=== PATIENT | male | born 1930 | race Caucasian/White ===

== ENCOUNTER 2018-02-18 11:45 | Observation (INO) | payer OTHER ==
[2018-02-18 12:47] LABS: BASOPHILS # (AUTO) 0.1 10^3/uL (0.0-0.1); BASOPHILS % (AUTO) 0.5 %; EOSINOPHILS % (AUTO) 0.1 %; HGB - HEMOGLOBIN 15.3 g/dL (14.0-18.0); LYMPHOCYTES # (AUTO) 4.6 10^3/uL (1.5-3.5); LYMPHOCYTES % (AUTO) 37.1 %; MEAN CORPUSCULAR HEMOGLOBIN 30.5 pg (27.0-31.0); MEAN CORPUSCULAR HGB CONC 33.3 g/dL (32.0-36.0); MEAN CORPUSCULAR VOLUME 91.6 fL (80.0-94.0); MEAN PLATELET VOLUME 9.4 fL (7.4-11.4); MONOCYTES # (AUTO) 1.6 10^3/uL (0.0-1.0); MONOCYTES % (AUTO) 12.8 %; NEUTROPHILS # (AUTO) 6.1 10^3/uL (1.5-6.6); NEUTROPHILS % (AUTO) 49.5 %; PLT - PLATELET COUNT 154 10^3/uL (130-450); RED BLOOD COUNT 5.02 10^6/uL (4.70-6.10); WHITE BLOOD COUNT 12.4 x10^3/uL (4.8-10.8)
[2018-02-18 13:06] LABS: ALBUMIN 4.5 g/dL (3.2-5.5); ALBUMIN/GLOBULIN RATIO 1.8 (1.0-2.2); BILIRUBIN,TOTAL 1.6 mg/dL (0.2-1.0); CALCIUM 9.1 mg/dL (8.5-10.3); CREATININE 0.7 mg/dL (0.6-1.2)
[2018-02-18 13:33] LABS: DIFFERENTIAL COMMENT MANUAL=AUTO DIFF
--- NOTE | 2018-02-18 14:14 | ED Physician Documentation ---
PD HPI ABD PAIN - Stated complaint Stated Complaint: AB PX - Chief complaint Chief Complaint: Abd Pain - History obtained from History obtained from: Patient, Family - History of Present Illness Timing - onset: Last night Timing - duration: Days (1) Timing - details: Gradual onset Pain level max: 8 Pain level now: 5 Quality: Aching, Pain Location: RUQ Associated symptoms: No: Fever - Additional information Additional information: Patient is an 87-year-old gentleman who presents to the emergency department with right upper quadrant pain since last night. Had vomiting this morning. Pain is worse with sitting and worse when trying to eat. Has never had pain similar. No fevers. No diarrhea. Does have a history of CLL Review of Systems Ten Systems: 10 systems reviewed and negative Constitutional: denies: Fever, Chills Respiratory: denies: Cough GI: reports: Nausea, Vomiting. denies: Diarrhea Skin: denies: Rash Musculoskeletal: denies: Neck pain, Back pain Neurologic: denies: Headache PD PAST MEDICAL HISTORY - Past Medical History Past Medical History: Yes Cardiovascular: Murmur Respiratory: Sleep apnea Endocrine/Autoimmune: None GI: None : None HEENT: None Psych: None Musculoskeletal: None Derm: None - Past Surgical History Past Surgical History: Yes General: Colonoscopy, Other Ortho: Knee replacement - Present Medications Home Medications: Ambulatory Orders Medication Instructions Recorded Confirmed Home Medications Unobtainable 05/20/15 05/20/15 [HOME MEDICATIONS UNOBTAINABLE] - Allergies Allergies/Adverse Reactions: Allergies Allergy/AdvReac Type Severity Reaction Status Date / Time No Known Drug Allergies Allergy Verified 05/20/15 09:58 - Social History Does the pt smoke?: No Smoking Status: Never smoker Does the pt drink ETOH?: No Does the pt have substance abuse?: No - Immunizations Immunizations are current?: Yes PD ED PE NORMAL - Vitals Vital signs reviewed: Yes - General General: Alert and oriented X 3, No acute distress - HEENT HEENT: Moist mucous membranes - Neck Neck: Supple, no meningeal sign - Cardiac Cardiac: RRR - Respiratory Respiratory: No respiratory distress, Clear bilaterally - Abdomen Abdomen: Other (Tender palpation right upper quadrant. Positive Danielle sign. Otherwise normal abdominal exam) - Back Back: No spinal TTP - Derm Derm: Warm and dry - Extremities Extremities: No edema - Neuro Neuro: Alert and oriented X 3 Results - Vitals Vitals: Vital Signs - 24 hr 08/21/18 08/21/18 08/21/18 12:01 14:00 16:00 Temperature 36.7 C Heart Rate 65 66 68 Heart Rate [ Brachial] Respiratory 18 18 18 Rate Blood Pressure 169/66 H 161/67 H 155/68 H Blood Pressure [Left Brachial artery] O2 Saturation 96 98 96 02/18/18 02/18/18 02/18/18 18:00 21:35 21:40 Temperature 36.5 C Heart Rate 66 Heart Rate [ Brachial] Respiratory 18 16 15 Rate Blood Pressure 156/66 H 163/54 H 163/61 H Blood Pressure [Left Brachial artery] O2 Saturation 98 100 97 02/18/18 02/18/18 02/18/18 21:45 21:50 21:55 Temperature 36.3 C L 36.6 C Heart Rate Heart Rate [ Brachial] Respiratory 15 18 21 Rate Blood Pressure 158/56 H 142/45 H 162/58 H Blood Pressure [Left Brachial artery] O2 Saturation 99 99 97 02/18/18 02/18/18 02/18/18 22:00 22:05 22:26 Temperature 36.3 C L 36.4 C L 37 C Heart Rate Heart Rate [ 61 Brachial] Respiratory 20 15 16 Rate Blood Pressure 149/58 H 149/58 H Blood Pressure 145/57 H [Left Brachial artery] O2 Saturation 97 97 94 02/18/18 23:00 Temperature 36.6 C Heart Rate Heart Rate [ 59 L Brachial] Respiratory 16 Rate Blood Pressure Blood Pressure 142/53 H [Left Brachial artery] O2 Saturation 95 Oxygen O2 Source Room air - Labs Labs: Laboratory Tests 02/18/18 02/18/18 02/18/18 12:40 12:40 12:40 WBC 12.4 H RBC 5.02 Hgb 15.3 Hct 46.0 MCV 91.6 MCH 30.5 MCHC 33.3 RDW 14.0 Plt Count 154 MPV 9.4 Neut # (Auto) 6.1 Lymph # (Auto) 4.6 H Ellis # (Auto) 1.6 H Eos # (Auto) 0.0 Baso # (Auto) 0.1 Absolute Nucleated RBC 0.00 Band Neuts % (Manual) Not Reportable Abnorm Lymph % (Manual) Not Reportable Nucleated RBC % 0.0 Neutrophils # (Manual) Not Reportable Lymphocytes # (Manual) Not Reportable Monocytes # (Manual) Not Reportable Eosinophils # (Manual) Not Reportable Basophils # (Manual) Not Reportable Differential Comment MANUAL=AUTO DIFF WBC Morphology 2+ REACTIVE LYMPHS Sodium 141 Potassium 4.7 Chloride 102 Carbon Dioxide 30 Anion Gap 9.0 BUN 9 Creatinine 0.7 Estimated GFR (MDRD) 107 Glucose 116 H POC Whole Bld Glucose Calcium 9.1 Total Bilirubin 1.6 H AST 30 ALT 21 Alkaline Phosphatase 67 Troponin I < 0.04 Total Protein 7.0 Albumin 4.5 Globulin 2.5 Albumin/Globulin Ratio 1.8 Lipase 24 Urine Color Urine Clarity Urine pH Ur Specific [place] Urine Protein Urine Glucose (UA) Urine Ketones Urine Occult Blood Urine Nitrite Urine Bilirubin Urine Urobilinogen Ur Leukocyte Esterase Urine RBC Urine WBC Ur Squamous Epith Cells Amorphous Sediment Urine Bacteria Ur Microscopic Review Urine Culture Comments 02/18/18 02/18/18 14:35 23:09 WBC RBC Hgb Hct MCV MCH MCHC RDW Plt Count MPV Neut # (Auto) Lymph # (Auto) Ellis # (Auto) Eos # (Auto) Baso # (Auto) Absolute Nucleated RBC Band Neuts % (Manual) Abnorm Lymph % (Manual) Nucleated RBC % Neutrophils # (Manual) Lymphocytes # (Manual) Monocytes # (Manual) Eosinophils # (Manual) Basophils # (Manual) Differential Comment WBC Morphology Sodium Potassium Chloride Carbon Dioxide Anion Gap BUN Creatinine Estimated GFR (MDRD) Glucose POC Whole Bld Glucose 228 H Calcium Total Bilirubin AST ALT Alkaline Phosphatase Troponin I Total Protein Albumin Globulin Albumin/Globulin Ratio Lipase Urine Color YELLOW Urine Clarity CLEAR Urine pH 7.5 Ur Specific [place] 1.015 Urine Protein NEGATIVE Urine Glucose (UA) NEGATIVE Urine Ketones NEGATIVE Urine Occult Blood SMALL H Urine Nitrite NEGATIVE Urine Bilirubin NEGATIVE Urine Urobilinogen 0.2 (NORMAL) Ur Leukocyte Esterase NEGATIVE Urine RBC 11-25 H Urine WBC 4-5 Ur Squamous Epith Cells RARE Squamous Amorphous Sediment Few Urine Bacteria None Seen Ur Microscopic Review INDICATED Urine Culture Comments NOT INDICATED - Rads (name of study) RUQ US Radiology: Prelim report reviewed, EMP read contemporaneously, See rad report ( Gallbladder wall thickening with mild adjacent inflammatory change is most in keeping with acute cholecystitis as demonstrated on ultrasound. Diverticulosis. Moderately enlarged prostate gland. ) CT abd/pelvis Radiology: Prelim report reviewed, EMP read contemporaneously, See rad report ( Cholelithiasis with cholecystitis. 2 hyperechoic foci right lobe of the liver, possible hemangiomas. Suggest follow-up by abdomen CT with hemangioma protocol on a routine outpatient basis. ) PD MEDICAL DECISION MAKING - ED course Complexity details: reviewed results, re-evaluated patient, considered differential, d/w patient, d/w family, d/w [facility] consultant ED course: Patient is an 87-year-old gentleman with acute cholecystitis. Given Zosyn. A CT was undertaken as there was a question of a potential renal mass on ultrasound. Discussed the case with Dr. Nazario, general surgery who came and evaluated the patient. He will take him to the operating room. This document was made in part using voice recognition software. While efforts are made to proofread this document, sound alike and grammatical errors may occur. - Sepsis Event Vital Signs: Vital Signs - 24 hr 02/18/18 02/18/18 02/18/18 12:01 14:00 16:00 Temperature 36.7 C Heart Rate 65 66 68 Heart Rate [ Brachial] Respiratory 18 18 18 Rate Blood Pressure 169/66 H 161/67 H 155/68 H Blood Pressure [Left Brachial artery] O2 Saturation 96 98 96 02/18/18 02/18/18 02/18/18 18:00 21:35 21:40 Temperature 36.5 C Heart Rate 66 Heart Rate [ Brachial] Respiratory 18 16 15 Rate Blood Pressure 156/66 H 163/54 H 163/61 H Blood Pressure [Left Brachial artery] O2 Saturation 98 100 97 02/18/18 02/18/18 02/18/18 21:45 21:50 21:55 Temperature 36.3 C L 36.6 C Heart Rate Heart Rate [ Brachial] Respiratory 15 18 21 Rate Blood Pressure 158/56 H 142/45 H 162/58 H Blood Pressure [Left Brachial artery] O2 Saturation 99 99 97 02/18/18 02/18/18 02/18/18 22:00 22:05 22:26 Temperature 36.3 C L 36.4 C L 37 C Heart Rate Heart Rate [ 61 Brachial] Respiratory 20 15 16 Rate Blood Pressure 149/58 H 149/58 H Blood Pressure 145/57 H [Left Brachial artery] O2 Saturation 97 97 94 02/18/18 23:00 Temperature 36.6 C Heart Rate Heart Rate [ 59 L Brachial] Respiratory 16 Rate Blood Pressure Blood Pressure 142/53 H [Left Brachial artery] O2 Saturation 95 Oxygen O2 Source Room air Departure - Departure Disposition: ED Transfer to [facility] Clinical Impression: Acute cholecystitis Condition: Stable Discharge Date/Time: 02/18/18 19:20
[2018-02-18 14:53] LABS: BILIRUBIN,URINE NEGATIVE (NEGATIVE); GLUCOSE, URINE (UA) NEGATIVE (NEGATIVE); KETONES,URINE (UA) NEGATIVE (NEGATIVE); LEUKOCYTE ESTERASE, URINE NEGATIVE (NEGATIVE); NITRITE,URINE NEGATIVE (NEGATIVE); OCCULT BLOOD,URINE SMALL (NEGATIVE); PH,URINE 7.5 PH (5.0-7.5); PROTEIN,URINE NEGATIVE (NEGATIVE); UROBILINOGEN,URINE 0.2 (NORMAL) E.U./dL (NORMAL)
[2018-02-18 14:56] LABS: CLARITY,URINE CLEAR (CLEAR)
[2018-02-18 15:02] LABS: AMORPHOUS SEDIMENT,UR Few /LPF; SQUAMOUS EPITHELIAL CELL,UR RARE Squamous (<= Few)
[2018-02-18 15:14] LABS: BACTERIA,URINE None Seen /HPF (None Seen)
[2018-02-18] MEDS ORDERED: IOPAMIDOL-300 100 ML VIAL ONE (16:37)
--- NOTE | 2018-02-18 16:44 | Ultrasound Report ---
Procedure Date: 02/18/2018 Accession Number: [id number] / [id number] Procedure: US - Abdomen Limited CPT Code: FULL RESULT: EXAM: ABDOMEN ULTRASOUND LIMITED, RUQ EXAM DATE: 02/18/2018 04:15 PM. CLINICAL HISTORY: RUQ abd pain. COMPARISON: None. TECHNIQUE: Real-time scanning was performed with static images obtained. FINDINGS: Liver: Mildly increased in size and normal in echotexture. 18.6 cm. 2 right lobe echogenic avascular areas measuring 1.5 x 1.4 x 1.3 and 0.9 x 0.7 x 0.6 cm. Main portal vein flow: Hepatopetal. Gallbladder: Cholelithiasis. Gallbladder sludge. Edematous gallbladder wall with wall thickness 4.5 mm. Biliary System: CBD measures 5.4 mm. No intrahepatic or extrahepatic ductal dilatation. Right kidney: 12 cm. No obstruction. Mildly lobulated contour Free fluid: Trace adjacent to the gallbladder. IMPRESSION: 1. Cholelithiasis with cholecystitis. 2. 2 hyperechoic foci right lobe of the liver, possible hemangiomas. Suggest follow-up by abdomen CT with hemangioma protocol on a routine outpatient basis. RADIA
[2018-02-18] MEDS ORDERED: PIPERACILLIN/TAZOBACTAM 3.375 GM in SODIUM CHLORIDE 0.9% MINIBAG 100 ML IV STA (17:05)
[2018-02-18] MEDS ORDERED: IOPAMIDOL-300 100 ML VIAL IVP ONE (17:26)
--- NOTE | 2018-02-18 17:45 | CT Report ---
Procedure Date: 02/18/2018 Accession Number: [id number] / [id number] Procedure: CT - Abdomen/Pelvis W/ CPT Code: FULL RESULT: EXAM: CT ABDOMEN AND PELVIS EXAM DATE: 02/18/2018 05:24 PM. CLINICAL HISTORY: Abd pain, RUQ, possible renal mass on US. COMPARISONS: Same day ultrasound. TECHNIQUE: Routine helical CT imaging was performed through the abdomen and pelvis. IV contrast: 100 ML ISOVUE 300. Enteric contrast: No. Reconstructions: Coronal and sagittal. In accordance with CT protocol optimization, one or more of the following dose reduction techniques were utilized for this exam: automated exposure control, adjustment of mA and/or KV based on patient size, or use of iterative reconstructive technique. FINDINGS: Lung Bases: Unremarkable. Liver: A vague enhancing focus in the right lobe measuring approximately 9 mm may correlate with the echogenic lesion seen on ultrasound (image 25 series 3). Gallbladder/Bile Ducts: There is gallbladder wall thickening with mild adjacent inflammatory change. There may be tiny layering stones. Gallbladder is mildly distended. No bile duct dilation. Spleen: Normal. Pancreas: Mildly atrophic. Adrenal Glands: Normal. Kidneys: No hydronephrosis. No right renal mass. Inferior pole left renal cyst. Probable renal vascular calcifications rather than nonobstructing stones. Peritoneal Cavity/Bowel: Small hiatal hernia. No bowel obstruction. 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 The appendix is normal. Pelvic Organs: Moderately enlarged prostate gland. Urinary bladder is unremarkable. Vasculature: Moderate to severe atherosclerosis. No aneurysm. Bones: Mild lumbar scoliosis. Moderate to marked disk degeneration. Other: None. IMPRESSION: 1. Gallbladder wall thickening with mild adjacent inflammatory change is most in keeping with acute cholecystitis as demonstrated on ultrasound. 2. Diverticulosis. 3. Moderately enlarged prostate gland. RADIA
--- NOTE | 2018-02-18 18:36 | ANESTHESIA ---
Pre-Anesthesia VS, & Labs - Diagnosis acute cholecystitis - Procedure Laparoscopic Cholecystectomy Vital Signs: Temp Pulse Resp BP Pulse Ox 36.7 C 68 18 155/68 H 96 02/18/18 12:01 02/18/18 16:00 02/18/18 16:00 02/18/18 16:00 02/18/18 16:00 Height 5 ft 10 in Weight (kg) 88.904 kg Body Mass Index 28.1 - NPO >8 hours - Lab Results Fish Bones: 02/18/18 12:40 02/18/18 12:40 Home Medications and Allergies Home Medications: Ambulatory Orders Medication Instructions Recorded Confirmed Home Medications Unobtainable 05/20/15 05/20/15 [HOME MEDICATIONS UNOBTAINABLE] Allergies/Adverse Reactions: Allergies Allergy/AdvReac Type Severity Reaction Status Date / Time No Known Drug Allergies Allergy Verified 05/20/15 09:58 Anes History & Medical History - Anesthetic History Anesthesia Complications: reports: No previous complications - Medical History Cardiovascular: reports: Murmur Pulmonary: reports: Sleep apnea, CPAP use Gastrointestinal: reports: None Urinary: reports: None Musculoskeletal: reports: None Endocrine/Autoimmune: reports: None Blood Disorders: reports: Anemia Skin: reports: None Smoking Status: Former smoker - Surgical History General: Colonoscopy, Other Orthopedic: Knee replacement Results - EKG Results EKG Comparison: Reviewed EKG Exam General: Alert Dental: Dentures full Upper, Partials Lower Mouth Openin Fingerbreadth Neck Mobility: Reduced Mallampati classification: II Thyromental Distance: greater than 6 cm Respiratory: Lungs clear Cardiovascular: Regular rate, Normal S1, Normal S2 Mental/Cognitive Status: Alert/Oriented X3 Plan Anesthesia Type: General Consent for Procedure(s) Verified and Reviewed: Yes Code Status: Attempt Resuscitation ASA classification: 2-Mild systemic disease Is this case an emergency?: Yes
[2018-02-18] MEDS ORDERED: BUPIVACAINE 0.5% PF 30 ML VIAL ONE (18:48)
--- NOTE | 2018-02-18 19:20 | CONSULTATION NOTE ---
Referring Provider Name of Referring Provider:: Dr. Wilfredo Orellana Consult Date: 02/18/18 Chief Complaint - Chief Complaint Chief Complaint: RUQ pain History of Present Illness - Admitted From Admitted From:: [facility] ED - History Obtained From Records Reviewed: Yes History obtained from: Patient and chart Exam Limitations: None - History of Present Illness HPI Comment/Other: I am calling consultation by Dr. Wilfredo Isaac to evaluate this very pleasant 87-year-old gentleman for diagnosis and treatment of acute cholecystitis. Please note that the patient was evaluated in room 7 at [facility]'s emergency department. Please also note that he was evaluated in the presence of his son and I believe [id number]. The patient has a less than 24-hour history of right upper quadrant pain that either happened just before or just after eating some pizza. He has not had this pain previously. The pain was described as very sharp and penetrating through to his back. It was accompanied by nausea and some vomiting. When the pain did not resolve he presented to the emergency department. He denies hematemesis, melena, hematochezia, or unexplained weight loss. History - Past Medical History Cardiovascular: reports: Murmur Respiratory: reports: Sleep apnea, CPAP use Endocrine/Autoimmune: reports: None GI: reports: None : reports: None HEENT: reports: None Psych: reports: None Musculoskeletal: reports: None Derm: reports: None MRSA Hx?: No - Past Surgical History General: reports: Colonoscopy, Other Ortho: reports: Knee replacement Meds/Allgy - Home Medications Home Medications: Ambulatory Orders Medication Instructions Recorded Confirmed Home Medications Unobtainable 05/20/15 05/20/15 [HOME MEDICATIONS UNOBTAINABLE] - Allergies Allergies/Adverse Reactions: Allergies Allergy/AdvReac Type Severity Reaction Status Date / Time No Known Drug Allergies Allergy Verified 05/20/15 09:58 Review of Systems - Constitutional Constitutional: denies: Fatigue - Eyes Eyes: denies: Pain - Ears, Nose & Throat Ears, Nose & Throat: denies: Ear pain - Cardiovascular Cariovascular: reports: Palpitations (Occasionally.), Other (Patient known to have a systolic ejection murmur.) - Respiratory Respiratory: reports: Snoring, Apnea (Sleep.). denies: Cough, Sputum production , Wheezing - Gastrointestinal Gastrointestinal: reports: Abdominal pain, Nausea, Vomiting. denies: Rectal bleeding, Black stools, Bloody stools, Chris blood emesis - Genitourinary Genitourinary: denies: Dysuria - Neurological Neurological: denies: General weakness, Focal weakness - Psychiatric Psychiatric: denies: Depression, Anxiety, Suicidal Exam - Vital Signs Reviewed Vital Signs: Yes Vital Signs: Vital Signs x48h Temp Pulse Resp BP Pulse Ox 02/18/18 18:00 66 18 156/66 H 98 18 16:00 68 18 155/68 H 96 02/18/18 14:00 66 18 161/67 H 98 02/18/18 12:01 36.7 C 65 18 169/66 H 96 - Physical Exam General Appearance: positive: No acute distress Eyes Bilateral: positive: No lid inflammation, Conjunctivae nml, No scleral icterus ENT: positive: Dry mucous membranes Neck: positive: Trachea midline Respiratory: positive: Chest non-tender, No respiratory distress, Breath sounds nml Cardiovascular: positive: Regular rate & rhythm, Systolic murmur Abdomen: positive: Nml bowel sounds, Tenderness (In the right upper quadrant.), Other (Obese.) Skin: positive: Color nml Neurologic/Psychiatric: positive: Oriented x3 Conclusion/Plan - Diagnosis Diagnosis: Acute cholecystitis. - Plan Plan: Laparoscopic cholecystectomy, possible open cholecystectomy, possible intraoperative cholangiogram, possible common bile duct exploration. The indications, procedure, alternatives including no surgery, possible risks including infection (deep or superficial), bleeding requiring transfusion (with all of its risks), common bile duct injury and were fully explained to the patient and all questions answered. I андрей pictures to help describe what the gallbladder is and how it works. I also explained the pathophysiology. I explained that following the surgery I did not want him lifting anything over 15 pounds for 6 weeks to allow for optimal healing and to decrease the likelihood that a hernia would occur. All questions were fully answered. Verbal and written consent was obtained. The patient, in preparation for surgery will be nothing by mouth, receive a soap and water shower, and receive 2 g of Ancef with induction. I asked him to contact me with any surgical questions and his concerns and he stated that he would. I asked him to let me know if there is any way we can make his say at [facility] more comfortable and he stated that he would let me know. 45 minutes of [id number] time spent with the patient, over 80% in discussion, coordination of his care, and completion of the requisite paperwork Yonny disclaimer: This document was created in part using voice recognition technology. Because of the inherent limitations of the system ([employer] user manual states that the licensee understands that speech recognition is a statistical process and that recognition errors are inherent in the process), occasional same sounding word substitutions and grammatical errors do occur and persist despite proofreading. Please read this document for context. - Lab Results Lab results reviewed: Yes Fish Bones: 02/18/18 12:40 02/18/18 12:40 - Diagnostic Imaging Results Diagnostic Imaging Results: positive: Final report reviewed (The ultrasound done today indicates cholelithiasis with cholecystitis. Additionally 2 hyperechoic foci in the right lobe of liver I read as possible hemangiomas and suggested follow-up of abdominal CT with hemangioma protocol and routine outpatient basis. The abdominal pelvic CT that was ordered shows a vague enhancing focus in the right lobe measuring approximately 9 mm which may correlate with the echogenic lesion seen on ultrasound image 25 series 3. Additionally there is gallbladder wall thickening with mild adjacent inflammatory changes. The gallbladder is mildly distended. There is no bile duct dilatation. There may be tiny layering stones. Additional findings include diverticulosis and a mildly enlarged prostate gland. Other findings include a duodenal diverticulum and a hiatal hernia.)
[2018-02-18] MEDS ORDERED: LACTATED RINGERS 1,000 ML IV ONE ×2 (20:03→20:56)
[2018-02-18] MEDS ORDERED: BUPIVACAINE 0.5% PF 30 ML VIAL SUBQ ONE (20:58)
[2018-02-18] MEDS ORDERED: MIDAZOLAM 2 MG/2 ML VIAL IVP ONE (21:00)
[2018-02-18] MEDS ORDERED: ONDANSETRON 4 MG/2 ML VIAL IVP ONE (21:00)
[2018-02-18] MEDS ORDERED: fentaNYL 100 MCG/2 ML VIAL IVP ONE (21:00)
[2018-02-18] MEDS ORDERED: PROPOFOL 200 MG/20 ML VIAL IVP ONE (21:00)
[2018-02-18] MEDS ORDERED: ROCURONIUM 50 MG/5 ML VIAL IVP ONE (21:00)
[2018-02-18] MEDS ORDERED: LIDOCAINE-MPF 2% 5 ML VIAL IM ONE (21:00)
[2018-02-18] MEDS ORDERED: ACETAMINOPHEN 1,000 MG/100 ML 100 ML IV ONE (21:00)
--- NOTE | 2018-02-18 21:50 | OPERATIVE REPORT ---
Operative Report - General Procedure Date: 02/18/18 Planned Procedure: Laparoscopic cholecystectomy Pre-Op Diagnosis: Acute cholecystitis Procedure Performed: Laparoscopic cholecystectomy and umbilical herniorrhaphy Post Op Diagnosis: Acute cholecystitis and umbilical hernia - Procedure Note Primary Surgeon: Mp Nazario MD Anesthesia Provider: Destini Mullins CRNA Anesthesia Technique: General ET tube, Local (30 mL of half percent Marcaine) IV Fluids (mL): 1,000 Estimated Blood Loss (mL): 75 Complications: None. - Other Other Information/Narrative: OPERATIVE DESCRIPTION/REPORT: After verbal and written informed consent was obtained detailing the risks of infection, bleeding with all of its risks including transfusion, common bile duct injury, and the patient was brought to the operative suite and placed in the supine position on the operating room table. Monitoring devices were applied along with TEDs and pneumatic compressive stockings. Care was taken to avoid pressure points. Prophylactic antibiotics were given. An adequate level of general endotracheal anesthesia was established by Destini Mullins CRNA. The abdomen was then prepped with ChloraPrep and draped in a sterile fashion. A "time in" then confirmed that the patient was identified with 3 identifiers (name, date and medical record number), the history and physical was in the chart, the signed consent confirming the procedure was in the chart, the patient was in the correct position, the aforementioned prophylactic measures were in place or given, we had the correct personnel and equipment to complete the procedure and that anesthesia, surgery and nursing were given an opportunity to express any concerns. The initial incision was at the umbilicus and dissection to the umbilical hernia completed using blunt dissection. The hernia sac was excised using Bovie electrocautery thus gaining entry into the abdomen without incident. In this location, a 12 mm blunt tipped, balloon tipped port was placed and the balloon was inflated to keep the port in position. The abdominal cavity was insufflated with carbon dioxide to steady-state pressure of 15 mmHg. Three additional 5 mm ports were placed in standard location for laparoscopic cholecystectomy (subxiphoid and 2 right subcostal) under direct vision of the 30 degree laparoscope and without incident. The patient was then placed in reverse Trendelenburg position and was rotated slightly to their left. The gallbladder was tense and distended and could not be grasped. Additionally there were many adhesions to the gallbladder including the duodenum. The adhesions were meticulously taken down using a combination of laparoscopic scissors as well as Bovie electrocautery. Once I was able to visualize the gallbladder well a needle was inserted into the gallbladder and light brown colored clear bile was removed. A total of 60 cc was removed. Once this was done the very thick-walled gallbladder could be grasped with Prestige graspers. Additional adhesions had to be taken down by blunt and sharp dissection along with electrocautery. Eventually, we identified the infundibulum, and this was then grasped and retracted inferior and laterally. Dissection was then begun in the angle of Calot. The cystic duct and (slightly medially and posteriorly) cystic artery were clearly identified. The critical view was obtained. Photographs were taken. Two clips proximally and one clip distally were used to control both the cystic duct and cystic artery. The clips were carefully placed to avoid occluding the juncture with the common bile duct. Both the cystic duct and then the cystic artery were then transected with laparoscopic andrey. The gallbladder was then removed from its fossa in a retrograde fashion using electrocautery. This was complicated by the massive amount of inflammation. Parts the gallbladder was densely adherent to the liver bed and at other parts it would simply peel off. We were able to remove the gallbladder in its entirety. Unfortunately, there was some bleeding from the gallbladder bed and control this I packed it with a Ray-Caleb. 5 minutes were allowed to elapse for hemostasis to occur. While I was waiting for hemostasis to occur at the gallbladder bed the patient was rotated flat and the right upper quadrant was copiously irrigated using warm sterile saline. A total of 4 L of saline was used. Additionally, I injected the port sites at the peritoneal , fascial, and skin levels under direct vision with 0.5% Marcaine. With the 30 degree 5 mm scope in the subxiphoid position, the gallbladder and the Ray- Caleb was placed in an EndoCatch bag to be extracted through the 12 mm port site. I irrigated the right upper quadrant with a liter of warm sterile saline, and the area was aspirated dry. I inspected the gallbladder fossa and clot had formed and there was no bleeding or bile leak. Clips on the cystic duct and cystic artery appeared to be secure. I briefly visually explored the abdomen. There was no other evidence of overt pathology. All ports and the EndoCatch containing the gallbladder and Ray-Caleb were removed. Following gallbladder removal, the remaining carbon dioxide was expelled from the abdomen. The fascial defect at the umbilicus was closed using a 0 Vicryl suture in a [id number] fashion. 2 sutures were required to close the fascia. In this manner the umbilical hernia was repaired. The fascia at the umbilicus as well as the skin was then injected with the remaining 0.5% Marcaine. The skin incisions were approximated with a running or interrupted subcuticular 4-0 Monocryl. At this point a time out was performed that confirmed that all the counts were correct, the procedure that was performed, the blood loss, the IV fluids administered, and the patients condition. Having tolerated the procedure well, the patient was subsequently extubated and taken to recovery room in good and stable condition. [employer] disclaimer: This document was created in part using voice recognition technology. Because of the inherent limitations of the system ([employer]'s [employer] Dictate user manual states that the licensee understands that speech recognition is a statistical process and that recognition errors are inherent in the process), occasional same sounding word substitutions and grammatical errors do occur and persist despite proofreading. Please read this document for context.
[2018-02-18] MEDS ORDERED: HYDROmorphone 0.5 MG/0.5 ML SYRINGE IVP PRN (23:52)
[2018-02-18] MEDS ORDERED: ONDANSETRON 4 MG/2 ML VIAL IVP PRN (23:52)
[2018-02-18] MEDS ORDERED: INSULIN REGULAR HUMAN 100 UNIT/1 ML 10 ML MDV IV PRN (23:54)
[2018-02-19] MEDS ORDERED: LACTATED RINGERS 1,000 ML IV SCH ×2 (01:00→18:00)
[2018-02-19] MEDS ORDERED: oxyCOD/ACETAMIN 5 MG/325 MG TABLET PO ONE ×2 (01:34→05:32)
[2018-02-19] MEDS: oxyCOD/ACETAMIN 5 MG/325 MG TABLET PO PRN ×2 (01:40→05:39)
[2018-02-19 02:51] LABS: HB2 TOTAL 13.8 g/dL; HEMOGLOBIN A1C 0.55 g/dL; HEMOGLOBIN A1C % 5.8 % (4.6-6.2)
--- NOTE | 2018-02-19 06:24 | CONSULTATION NOTE ---
DATE OF SURGERY: 02/18/2018 DATE OF SERVICE: 02/18/2018 Physician: Santa Christensen MD REFERRING PHYSICIAN: Mp Nazario MD, General Surgery. REASON FOR CONSULTATION: Management of diabetic patient in the postoperative setting. HISTORY OF PRESENT ILLNESS: Patient is a kaylynn, 87-year-old, white male who has had type 2 diabetes mellitus for about 15 years. He is on oral medications and denies any complications of neuropathy, retinopathy, or nephropathy. He presented to our hospital with right upper quadrant pain starting on February 17. Overnight, it progressed to nausea and vomiting with right upper quadrant pain. In our emergency room, he was identified as having acute cholecystitis. This was on the evening of February 18. He was taken to the operating room by Dr. Mp Nazario. There have been no perioperative complications and he is now in the postoperative setting. We are being asked to manage his glucose. [employer] website reviewed as well as [facility] to obtain his previous history. The patient states that his sugars are usually well controlled. He is followed by Oncology at [facility] and unfortunately there is no A1c with that record. I do have an A1c of 6.3% in [facility], but that is from May 2015. Patient is unable to tell me what his sugars are. He says that he does not check them on a regular basis. He says that his sugars have been well controlled. In the immediate postoperative setting a random glucose is 228. Before going to the OR, he was 116. PAST MEDICAL HISTORY 1. 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 His last LDH was 807 on followup December 2017. He has been on Imbruvica since October 2016. 2. Iron deficiency anemia from #3. Initially, he presented as severe anemia in 2014 to our hospital. Because of his autoimmune hemolytic anemia and transfusion reaction risk, he was transferred to [facility] for further evaluation of the iron deficiency anemia, but also because he had 2% blast. 3. Erosive gastritis. Because his iron deficiency anemia continued even after transfusion and treatment of CLL, he underwent an EGD and colonoscopy in October 2015. He was found to have erosive gastritis, and treated with proton pump inhibitors and H2 blockers. He was H pylori negative. Followup EGD in March 2016 showed resolution of the erosive gastritis. The patient still lists aspirin on his daily medication list and is unaware that he should most likely stop all nonsteroidals with his history of his erosive gastritis. 4. Type 2 diabetes mellitus as above. 5. Hypertension. 6. Gastroesophageal reflux disease. 7. Osteoarthritis with bilateral total knee replacements. 8. Obstructive sleep apnea, on CPAP. 9. History of skin cancer on his jaw line. 10. Tonsillectomy as a child. 11. Nerve transplant or transposition surgery, left arm. 12. History of chronic pulmonary nodule. 13. Hemorrhoidectomy in 2015. 14. Psoriasis. ALLERGIES: NO KNOWN DRUG ALLERGIES. MEDICATIONS Medications have not been verified. They are reviewed in his oncology progress notes with Dr. Calixto Dash at [facility] from 12/03/2017. That list has: 1. Ferrous sulfate 325 mg p.o. b.i.d. 2. Omeprazole 20 mg p.o. b.i.d. 3. Simvastatin 80 mg p.o. at Bedtime. 4. Imbruvica 420 mg p.o. daily. 5. Aspirin 81 mg p.o. daily. 6. Calcium carbonate with vitamin D two tablets daily. 7. Vitamin D 1000 units daily. 8. Docusate sodium 250 mg daily. 9. Fosinopril 20 mg daily. 10. Metformin 1000 mg p.o. daily. SOCIAL HISTORY: He was born in [place] and spent most of his life there. After fci, moved to [place]. He served in the [employer] for 10 years. 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 to his first until she of ruptured aneurysm complications in 2016. He smoked cigarettes for 50 years in the past. 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 FAMILY HISTORY: Mom at 89 of unknown causes and attributed to old age, same with his dad who in his 80s. Six siblings are all , but he denies any history of cancer, heart attack, stroke in them. His 4 children are healthy. REVIEW OF SYSTEMS Not able to be completely obtained in his postop sedated state. CONSTITUTIONAL: This patient is sedated in the postoperative setting. While he is alert and cooperative, he is quite euphoric. ENT: He denies any problems with vision, headaches. PULMONARY: Denies coughing, wheezing, chest congestion. CARDIAC: Denies chest pain, palpitations, shortness of breath. However, he is always tired. He has been tired ever since he has had his CLL. GASTROINTESTINAL: With chronic constipation and hemorrhoids, but the hemorrhoids were treated. GENITOURINARY: Urgency occasionally. Decreased stream usually. JOINTS: Stiff all over, but not new and he says "I'm old, what do you expect." SKIN: No new lesions. CENTRAL NERVOUS SYSTEM AND PSYCHIATRIC: Unable to be verified, he's under the effects of anesthesia and pain meds. PHYSICAL EXAMINATION VITAL SIGNS: On examination, temperature is 36.3, pulse is 58, blood pressure 130/51, respirations 18, 92% on room air. NECK: Supple. LUNGS: Clear. HEART: He has a regular rate and rhythm without murmurs, rubs or gallops. ABDOMEN: With 1 bowel sound heard. Laparoscopic incision sites that are tender. EXTREMITIES: Without clubbing, cyanosis or edema. NEUROLOGIC: He is euphoric. No focal deficits. LABORATORY DATA: CMP shows a random glucose of 116 with a glucose after surgery of 228. Bilirubin is 1.6, AST 30, ALT 21. Troponin less than 0.04. CBC shows him to have a white cell count of 58,700, hemoglobin of 6, hematocrit 21.6, platelets 128. ASSESSMENT/PLAN 1. Type 2 diabetes mellitus, controlled, without complications, not on long- term use of insulin. Patient is on a low-carbohydrate diet per General Surgery. As such, patient will be placed on moderate sliding scale subcutaneous insulin coverage. At this time, he cannot be resumed on his metformin. He has received dye with his CT in the ER. Metformin needs to be held for the next 72 hours with a creatinine check before he can resume that. Check A1c in a.m. 2. 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 In reviewing the records from [facility] and [facility], the patient is at risk for transfusion reaction. As such, his hemoglobin has been watched and carefully monitored, but not necessarily transfused. In a normal patient, he would be receiving at least 1-2 units to bring him above 7 or 8. In this patient, unless he is symptomatic with hypotension and tachycardia, we will not transfuse. 3. Hypertension, controlled. When able to take medications in the morning, will resume usual medications. 4. Acute cholecystitis. POD#0. s/p lap norah. General Surgery will continue to write orders with regards to diet, pain medication and antibiotics. 5. Obstructive sleep apnea. Orders have already been written that he may use his own CPAP. 6. FULL CODE status. 7. Deep venous thrombosis prophylaxis will be ANTOINETTE talbot. TD: 02/19/2018 00:26 RENETTA
[2018-02-19] MEDS ORDERED: oxyCODONE 5 MG TABLET PO PRN (07:08)
[2018-02-19] MEDS: INSULIN ASPART 300 UNIT/3 ML PEN SUBQ SCH ×4 (07:57→21:10)
[2018-02-19 10:30] LABS: HGB - HEMOGLOBIN 13.6 g/dL (14.0-18.0); MEAN CORPUSCULAR VOLUME 91.3 fL (80.0-94.0); MEAN PLATELET VOLUME 8.9 fL (7.4-11.4); RED BLOOD COUNT 4.38 10^6/uL (4.70-6.10); RED CELL DISTRIBUTION WIDTH 13.7 % (12.0-15.0); WHITE BLOOD COUNT 9.3 x10^3/uL (4.8-10.8)
[2018-02-19 10:44] LABS: ALBUMIN 3.7 g/dL (3.2-5.5); ALBUMIN/GLOBULIN RATIO 1.6 (1.0-2.2); BILIRUBIN,TOTAL 2.2 mg/dL (0.2-1.0); CALCIUM 8.3 mg/dL (8.5-10.3); CREATININE 0.8 mg/dL (0.6-1.2)
[2018-02-19] MEDS ORDERED: CALCIUM CARBONATE CHEW 500 MG TABLET PO PRN (11:21)
[2018-02-19] MEDS: FAMOTIDINE 20 MG TABLET PO SCH ×2 (11:49→19:55)
--- NOTE | 2018-02-19 16:36 | Discharge Plan ---
Discharge Plan Disposition: Home, Self Care Condition: Poor Prescriptions: Blood-Glucose Meter [Glucometer] 1 each MC TID #1 each Docusate Sodium 100 mg PO BID PRN #10 capsule PRN Reason: Constipation Insulin Aspart [Novolog Flexpen] 0 unit SUBQ ACHS #5 each Lancets/Blood Glucose Strips [Fora [id number] Strp-Lnct] 1 each MC TID #15 combo..pkg oxyCODONE [Roxicodone] 5 mg PO Q4H PRN #30 tablet PRN Reason: Pain Pen Needle, Diabetic [Pen [place]] 1 each MC TID #15 dis.needle Diet: Diabetic Activity Restrictions: Additional Comments (no lifting anything over 15 pounds for 6 weeks to allow for optimal healing and to decrease the likelihood that a hernia would occur.) Additional Instructions or Follow Up instructions: You may follow up your PCP in one week, follow up Dr. Mp Osorio in two weeks, follow up your oncologist as the schedule. You may resume your home medications as the schedule. You may not lift anything over 15 pounds for 6 weeks to allow for optimal healing and to decrease the likelihood that a hernia would occur. Should your symptoms return or worsen, you may present ER or call 911 for help. No Smoking: If you smoke, Please STOP! Call for help. Follow-up with: Provider,Other [Primary Care Provider] -
[2018-02-19] MEDS: ACETAMINOPHEN 325 MG TABLET PO PRN (17:01)
--- NOTE | 2018-02-19 17:11 | PROVIDER PROGRESS NOTE ---
Subjective - Prog Note Date Prog Note Date: 02/19/18 - Subjective Pt reports feeling: Worse Subjective: nurse report pt has fever at 38.4 degree. So pt's d/c order was canceled. Pt report his pain is controlled. He denies chest pain, cough. Current Medications - Current Medications Current Medications: Active Medications Acetaminophen (Tylenol) 650 mg PO Q4HR PRN PRN Reason: Pain or Fever > 38C (100.4F) Last Admin: 02/19/18 17:01 Dose: 650 mg Calcium Carbonate/Glycine (Tums) 500 mg PO BID PRN PRN Reason: Heartburn Last Admin: 02/19/18 11:49 Dose: 500 mg Famotidine (Pepcid) 20 mg PO BID BRITTANY Last Admin: 02/19/18 11:49 Dose: 20 mg Hydromorphone HCl (Dilaudid Inj Syringe) 0.2 mg IVP Q30M PRN PRN Reason: breakthrough pain Piperacillin Sod/Tazobactam (Sod 3.375 gm/ Sodium Chloride) 100 mls @ 200 mls/ hr IV Q6H [facility] Last Admin: 02/19/18 17:17 Dose: 200 mls/hr Lactated Ringer's (Lr) 1,000 mls @ 83.333 mls/hr IV .Q12H [facility] Stop: 02/20/18 05:59 Insulin Aspart (Novolog) 1 - 9 unit SUBQ 0800,1200,1700,2100 BRITTANY PRN Reason: Protocol Last Admin: 02/19/18 17:17 Dose: Not Given Ondansetron HCl (Zofran Inj) 4 mg IVP DAILY PRN PRN Reason: nausea/vomiting Oxycodone HCl (Roxicodone) 5 mg PO Q4HR PRN PRN Reason: PAIN Last Admin: 02/19/18 14:58 Dose: 5 mg (Imbruvica 140 Mg) (Capsules) 3 each PO DAILY BRITTANY Last Admin: 02/19/18 08:02 Dose: 3 each Objective - Vital Signs/Intake & Output Reviewed Vital Signs: Yes Intake & Output: Intake & Output 02/16/18 02/17/18 02/18/18 02/19/18 23:59 23:59 23:59 23:59 Intake Total 100 500 Output Total 300 Balance 100 200 - Objective General Appearance: positive: No acute distress, Alert. negative: Lethargic Eyes Bilateral: positive: Normal inspection, PERRL, No lid inflammation, Conjunctivae nml ENT: positive: ENT inspection nml, Pharynx nml, No signs of dehydration. negative: Purulent nasal drainage, Pharyngeal erythema, Oral lesions Neck: positive: Nml inspection, Thyroid nml, No JVD, Trachea midline. negative : Thyromegaly, Lymphadenopathy (R), Lymphadenopathy (L), Stiff neck, Carotid bruit, Swelling/bruising, Tracheal deviation Respiratory: positive: Chest non-tender, No respiratory distress, Breath sounds nml. negative: Wheezes, Rales, Rhonchi Cardiovascular: positive: Regular rate & rhythm, No murmur, No gallop. negative : Irregularly irregular, Extrasystoles, Tachycardia, Bradycardia, JVD present, Systolic murmur, Diastolic murmur Peripheral Pulses: 2+ Radial (R), 2+ Radial (L), 2+ Dorsalis pedis (R), 2+ Dorsalis pedis (L) Abdomen: positive: Non-tender, No organomegaly, Nml bowel sounds, No distention. negative: Tenderness, Guarding, Rebound Back: positive: Nml inspection. negative: CVA tenderness (R), CVA tenderness (L ) Skin: positive: Color nml, No rash, Warm, Dry. negative: Cyanosis, Diaphoresis , Pallor Extremities: positive: Non-tender, Full ROM, Nml appearance. negative: Calf tenderness, Joint swelling, Rekha's sign/cords Neurologic/Psychiatric: positive: Oriented x3, Motor nml, Sensation nml, Mood/ affect nml. negative: Weakness, Sensory loss, Facial droop, Slurred/abnml speech, Depressed mood/affect - Lab Results Fish Bones: 02/19/18 10:25 02/19/18 10:25 Other Labs: Lab Results x24hrs 02/19/18 02/19/18 02/19/18 Range/Units 16:28 11:30 10:25 WBC 9.3 (4.8-10.8) x10^3/uL RBC 4.38 L (4.70-6.10) 10^6/uL Hgb 13.6 L (14.0-18.0) g/dL Hct 40.0 L (42.0-52.0) % MCV 91.3 (80.0-94.0) fL MCH 31.0 (27.0-31.0) pg MCHC 34.0 (32.0-36.0) g/dL RDW 13.7 (12.0-15.0) % Plt Count 123 L (130-450) 10^3/uL MPV 8.9 (7.4-11.4) fL Sodium (135-145) mmol/L Potassium (3.5-5.0) mmol/L Chloride (101-111) mmol/L Carbon Dioxide (21-32) mmol/L Anion Gap (6-13) BUN (6-20) mg/dL Creatinine (0.6-1.2) mg/dL Estimated GFR (MDRD) (>89) Glucose (70-100) mg/dL POC Whole Bld Glucose 116 H 103 H (70 - 100) mg/dL Glycated Hemoglobin (4.6-6.2) % Estim Average Glucose (70-100) Calcium (8.5-10.3) mg/dL Total Bilirubin (0.2-1.0) mg/dL AST (10-42) IU/L ALT (10-60) IU/L Alkaline Phosphatase (42-121) IU/L Total Protein (6.7-8.2) g/dL Albumin (3.2-5.5) g/dL Globulin (2.1-4.2) g/dL Albumin/Globulin Ratio (1.0-2.2) 02/19/18 02/19/18 02/19/18 Range/Units 10:25 07:33 00:25 WBC (4.8-10.8) x10^3/uL RBC (4.70-6.10) 10^6/uL Hgb (14.0-18.0) g/dL Hct (42.0-52.0) % MCV (80.0-94.0) fL MCH (27.0-31.0) pg MCHC (32.0-36.0) g/dL RDW (12.0-15.0) % Plt Count (130-450) 10^3/uL MPV (7.4-11.4) fL Sodium 136 (135-145) mmol/L Potassium 4.0 (3.5-5.0) mmol/L Chloride 97 L (101-111) mmol/L Carbon Dioxide 31 (21-32) mmol/L Anion Gap 8.0 (6-13) BUN 9 (6-20) mg/dL Creatinine 0.8 (0.6-1.2) mg/dL Estimated GFR (MDRD) 92 (>89) Glucose 118 H (70-100) mg/dL POC Whole Bld Glucose 93 (70 - 100) mg/dL Glycated Hemoglobin 5.8 (4.6-6.2) % Estim Average Glucose 120 H (70-100) Calcium 8.3 L (8.5-10.3) mg/dL Total Bilirubin 2.2 H (0.2-1.0) mg/dL AST 42 (10-42) IU/L ALT 34 (10-60) IU/L Alkaline Phosphatase 52 (42-121) IU/L Total Protein 6.0 L (6.7-8.2) g/dL Albumin 3.7 (3.2-5.5) g/dL Globulin 2.3 (2.1-4.2) g/dL Albumin/Globulin Ratio 1.6 (1.0-2.2) 02/18/18 02/18/18 Range/Units 23:53 23:09 WBC (4.8-10.8) x10^3/uL RBC (4.70-6.10) 10^6/uL Hgb (14.0-18.0) g/dL Hct (42.0-52.0) % MCV (80.0-94.0) fL MCH (27.0-31.0) pg MCHC (32.0-36.0) g/dL RDW (12.0-15.0) % Plt Count (130-450) 10^3/uL MPV (7.4-11.4) fL Sodium (135-145) mmol/L Potassium (3.5-5.0) mmol/L Chloride (101-111) mmol/L Carbon Dioxide (21-32) mmol/L Anion Gap (6-13) BUN (6-20) mg/dL Creatinine (0.6-1.2) mg/dL Estimated GFR (MDRD) (>89) Glucose (70-100) mg/dL POC Whole Bld Glucose 192 H 228 H (70 - 100) mg/dL Glycated Hemoglobin (4.6-6.2) % Estim Average Glucose (70-100) Calcium (8.5-10.3) mg/dL Total Bilirubin (0.2-1.0) mg/dL AST (10-42) IU/L ALT (10-60) IU/L Alkaline Phosphatase (42-121) IU/L Total Protein (6.7-8.2) g/dL Albumin (3.2-5.5) g/dL Globulin (2.1-4.2) g/dL Albumin/Globulin Ratio (1.0-2.2) ABX Reporting Has patient been on IV antibiotics over the past 48 hours?: Yes Assessment/Plan - Problem List (1) Fever Impression: status post day one of cholecystectomy. nurse report pt had fever at 38.4. pt's is on paper charts of day surgery. will ask case consultant to switch to inpt/ob start on Zosyn CXR, UA blood culture IVF of NS continue incentive spirometer (2) CLL (chronic lymphocytic leukemia) Impression: stable, resume home meds follow up out-pt pt's oncologist (3) DM2 (diabetes mellitus, type 2) Impression: A1C 5.8, but hyperglycemia, possible caused by infection and surgery. slide scale, insulin PRN (4) HTN (hypertension) Impression: stable, will resume home meds after pharmacy reconcile. PRN clonidine (5) COPD (chronic obstructive pulmonary disease) Impression: stable, PRN albuterol, and Duoneb
[2018-02-19] MEDS: PIPERACILLIN/TAZOBACTAM 3.375 GM in SODIUM CHLORIDE 0.9% MINIBAG 100 ML IV SCH ×2 (17:17→22:20)
[2018-02-19] MEDS ORDERED: cloNIDine 0.1 MG TABLET PO PRN (18:05)
[2018-02-19] MEDS ORDERED: IPRATROPIUM/ALBUTEROL 3 ML NEB INH PRN (18:06)
[2018-02-19] MEDS ORDERED: ALBUTEROL NEB 2.5 MG/3 ML INH PRN (18:06)
[2018-02-19] MEDS: ENOXAPARIN 40 MG/0.4 ML SYRINGE SUBQ SCH (19:55)
--- NOTE | 2018-02-19 19:58 | PROVIDER PROGRESS NOTE ---
Subjective - General Procedure Date: 02/18/18 Post Op Days: 1 Procedure Performed: Laparoscopic cholecystectomy and umbilical herniorrhaphy - Review of Systems Wound/Incisions: positive: Drainage (Very mild sanguinous under opsite.) General: positive: No symptoms (Feeling little to no pain.) HEENT: positive: No symptoms Pulmonary: positive: No symptoms Cardiovascular: positive: No symptoms Gastrointestinal: positive: No symptoms Genitourinary: positive: No symptoms Musculoskeletal: positive: No symptoms Skin: positive: No symptoms - Other Other Information/Narrative: Please note that patient was evaluated at 0930 with the anticipation that he would be going home after the labs that were mistakenly not drawn at 0500 were completed and evaluated. Objective - Patient Data Reviewed Vital Signs: Yes Weight: Weight 02/17/18 02/18/18 02/19/18 23:59 23:59 23:59 Weight (kg) 88.904 kg Intake & Output: Intake and Output Totals x24h 02/17/18 02/18/18 02/19/18 23:59 23:59 23:59 Intake Total 100 600 Output Total 300 Balance 100 300 - Lab Results Lab Results: 02/19/18 10:25 02/19/18 10:25 Other Lab Results: Lab Results x24hrs 02/19/18 02/19/18 02/19/18 Range/Units 16:28 11:30 10:25 WBC 9.3 (4.8-10.8) x10^3/uL RBC 4.38 L (4.70-6.10) 10^6/uL Hgb 13.6 L (14.0-18.0) g/dL Hct 40.0 L (42.0-52.0) % MCV 91.3 (80.0-94.0) fL MCH 31.0 (27.0-31.0) pg MCHC 34.0 (32.0-36.0) g/dL RDW 13.7 (12.0-15.0) % Plt Count 123 L (130-450) 10^3/uL MPV 8.9 (7.4-11.4) fL Sodium (135-145) mmol/L Potassium (3.5-5.0) mmol/L Chloride (101-111) mmol/L Carbon Dioxide (21-32) mmol/L Anion Gap (6-13) BUN (6-20) mg/dL Creatinine (0.6-1.2) mg/dL Estimated GFR (MDRD) (>89) Glucose (70-100) mg/dL POC Whole Bld Glucose 116 H 103 H (70 - 100) mg/dL Glycated Hemoglobin (4.6-6.2) % Estim Average Glucose (70-100) Calcium (8.5-10.3) mg/dL Total Bilirubin (0.2-1.0) mg/dL AST (10-42) IU/L ALT (10-60) IU/L Alkaline Phosphatase (42-121) IU/L Total Protein (6.7-8.2) g/dL Albumin (3.2-5.5) g/dL Globulin (2.1-4.2) g/dL Albumin/Globulin Ratio (1.0-2.2) 02/19/18 02/19/18 02/19/18 Range/Units 10:25 07:33 00:25 WBC (4.8-10.8) x10^3/uL RBC (4.70-6.10) 10^6/uL Hgb (14.0-18.0) g/dL Hct (42.0-52.0) % MCV (80.0-94.0) fL MCH (27.0-31.0) pg MCHC (32.0-36.0) g/dL RDW (12.0-15.0) % Plt Count (130-450) 10^3/uL MPV (7.4-11.4) fL Sodium 136 (135-145) mmol/L Potassium 4.0 (3.5-5.0) mmol/L Chloride 97 L (101-111) mmol/L Carbon Dioxide 31 (21-32) mmol/L Anion Gap 8.0 (6-13) BUN 9 (6-20) mg/dL Creatinine 0.8 (0.6-1.2) mg/dL Estimated GFR (MDRD) 92 (>89) Glucose 118 H (70-100) mg/dL POC Whole Bld Glucose 93 (70 - 100) mg/dL Glycated Hemoglobin 5.8 (4.6-6.2) % Estim Average Glucose 120 H (70-100) Calcium 8.3 L (8.5-10.3) mg/dL Total Bilirubin 2.2 H (0.2-1.0) mg/dL AST 42 (10-42) IU/L ALT 34 (10-60) IU/L Alkaline Phosphatase 52 (42-121) IU/L Total Protein 6.0 L (6.7-8.2) g/dL Albumin 3.7 (3.2-5.5) g/dL Globulin 2.3 (2.1-4.2) g/dL Albumin/Globulin Ratio 1.6 (1.0-2.2) 02/18/18 02/18/18 Range/Units 23:53 23:09 WBC (4.8-10.8) x10^3/uL RBC (4.70-6.10) 10^6/uL Hgb (14.0-18.0) g/dL Hct (42.0-52.0) % MCV (80.0-94.0) fL MCH (27.0-31.0) pg MCHC (32.0-36.0) g/dL RDW (12.0-15.0) % Plt Count (130-450) 10^3/uL MPV (7.4-11.4) fL Sodium (135-145) mmol/L Potassium (3.5-5.0) mmol/L Chloride (101-111) mmol/L Carbon Dioxide (21-32) mmol/L Anion Gap (6-13) BUN (6-20) mg/dL Creatinine (0.6-1.2) mg/dL Estimated GFR (MDRD) (>89) Glucose (70-100) mg/dL POC Whole Bld Glucose 192 H 228 H (70 - 100) mg/dL Glycated Hemoglobin (4.6-6.2) % Estim Average Glucose (70-100) Calcium (8.5-10.3) mg/dL Total Bilirubin (0.2-1.0) mg/dL AST (10-42) IU/L ALT (10-60) IU/L Alkaline Phosphatase (42-121) IU/L Total Protein (6.7-8.2) g/dL Albumin (3.2-5.5) g/dL Globulin (2.1-4.2) g/dL Albumin/Globulin Ratio (1.0-2.2) - Current Medications Current Medications: Current Medications Generic Name Dose Route Start Last Admin Trade Name Freq PRN Reason Stop Dose Admin Acetaminophen 650 mg 02/19/18 16:57 02/19/18 17:01 Tylenol PO 650 mg Q4HR PRN Administration Pain or Fever > 38C (100.4F) Calcium Carbonate/Glycine 500 mg 02/19/18 11:21 02/19/18 11:49 Tums PO 500 mg BID PRN Administration Heartburn Famotidine 20 mg 02/19/18 12:00 02/19/18 11:49 Pepcid PO 20 mg BID BRITTANY Administration Piperacillin Sod/Tazobactam 100 mls @ 200 mls/hr 02/19/18 17:00 02/19/18 18: 14 Sod 3.375 gm/ Sodium Chloride IV Infused Q6H BRITTANY Infusion Insulin Aspart 1 - 9 unit 02/19/18 08:00 02/19/18 17:17 Novolog SUBQ Not Given 0800,1200,1700,2100 [facility] Protocol Oxycodone HCl 5 mg 02/19/18 07:08 02/19/18 14:58 Roxicodone PO 5 mg Q4HR PRN Administration PAIN (Imbruvica 140 Mg) 3 each 02/19/18 09:00 02/19/18 08:02 Capsules PO 3 each DAILY BRITTANY Administration - Physical Exam Wound/Incisions: positive: Drainage (Again very slight sanguinous under opsite.) General Appearance: positive: No acute distress Eyes Bilateral: positive: No lid inflammation, Conjunctivae nml, No scleral icterus ENT: positive: No signs of dehydration Neck: positive: Trachea midline Respiratory: positive: Chest non-tender, No respiratory distress, Breath sounds nml (CPAP in place.) Cardiovascular: positive: Regular rate & rhythm Abdomen: positive: Nml bowel sounds, No distention, Tenderness (Minimal incisional. Certainly no peritoneal findings.) Skin: positive: Color nml Extremities: positive: Nml appearance Neurologic/Psychiatric: positive: Oriented x3 Impression/Plan - Problem List Problem List: D1 s/p laparoscopic cholecystectomy for acute and chronic cholecystitis with umbilical herniorrhaphy At the time the patient was evaluated he looked good and the only thing holding him back from going home was arranging his diabetes control at home as he was not to take Metformin for 72 hours at least AND prior to going home he should have his creatinine checked as well as check the labs that had mistakenly not been drawn at 0500. Since that time he apparently developed a fever with the likely source being pulmonary. Kept to ensure fever does not represent something more serious. Recommend aggressive pulmonary toilet and re-evaluation in AM. Dr. Anastacio Moore has been kind enough to take over his care in my absence and it is appreciated. Also wish to thank Hospitalists for their input in his care.
[2018-02-20] MEDS: ACETAMINOPHEN 325 MG TABLET PO PRN ×2 (00:03→15:32)
[2018-02-20 05:15] LABS: BASOPHILS % (AUTO) 0.5 %; EOSINOPHILS % (AUTO) 0.1 %; HGB - HEMOGLOBIN 12.6 g/dL (14.0-18.0); LYMPHOCYTES % (AUTO) 37.9 %; MEAN CORPUSCULAR HEMOGLOBIN 30.7 pg (27.0-31.0); MEAN CORPUSCULAR HGB CONC 33.2 g/dL (32.0-36.0); MEAN CORPUSCULAR VOLUME 92.5 fL (80.0-94.0); MEAN PLATELET VOLUME 9.8 fL (7.4-11.4); MONOCYTES % (AUTO) 14.1 %; NEUTROPHILS % (AUTO) 47.4 %; PLT - PLATELET COUNT 112 10^3/uL (130-450); RED CELL DISTRIBUTION WIDTH 13.8 % (12.0-15.0); WHITE BLOOD COUNT 8.3 x10^3/uL (4.8-10.8)
[2018-02-20 05:18] LABS: ALBUMIN 3.2 g/dL (3.2-5.5); ALBUMIN/GLOBULIN RATIO 1.4 (1.0-2.2); BILIRUBIN,TOTAL 1.9 mg/dL (0.2-1.0); CALCIUM 8.2 mg/dL (8.5-10.3); CREATININE 0.7 mg/dL (0.6-1.2); MAGNESIUM 1.9 mg/dL (1.7-2.8); TOTAL PROTEIN 5.5 g/dL (6.7-8.2)
[2018-02-20 05:20] LABS: ABNORMAL LYMPHS % (MANUAL) 0 %
[2018-02-20] MEDS: PIPERACILLIN/TAZOBACTAM 3.375 GM in SODIUM CHLORIDE 0.9% MINIBAG 100 ML IV SCH ×4 (05:26→22:18)
[2018-02-20 06:13] LABS: BAND NEUTROPHILS % (MANUAL) 1 %; DIFFERENTIAL COMMENT MANUAL DIFFERENTIAL; LYMPHOCYTES # (MANUAL) 2.9 10^3/uL (1.5-3.5); LYMPHOCYTES % (MANUAL) 35 %; MONOCYTES # (MANUAL) 0.3 10^3/uL (0.0-1.0); NEUTROPHILS # (MANUAL) 5.1 10^3/uL (1.5-6.6); NEUTROPHILS % (MANUAL) 60 %; PLATELET ESTIMATE, MANUAL DECREASED (<130,000) (NORMAL); RBC MORPHOLOGY (MULTIPLE) NORMAL APPEARANCE (NORMAL)
[2018-02-20] MEDS: INSULIN ASPART 300 UNIT/3 ML PEN SUBQ SCH ×4 (07:53→20:49)
--- NOTE | 2018-02-20 10:35 | PROVIDER PROGRESS NOTE ---
Subjective - Prog Note Date Prog Note Date: 02/20/18 - Subjective Pt reports feeling: Improved Subjective: pt report his abdomen is controlled. He tolerate his diet. No N/V/D. Pt still has some warm feeling today. Now his Temperature is 37.6. CXR and UA are pending. blood culture is pending also Current Medications - Current Medications Current Medications: Active Medications Acetaminophen (Tylenol) 650 mg PO Q4HR PRN PRN Reason: Pain or Fever > 38C (100.4F) Last Admin: 02/20/18 00:03 Dose: 650 mg Albuterol () 2.5 mg INH RTQ4H PRN PRN Reason: Wheezing Albuterol/Ipratropium (Duoneb) 3 ml INH Q4HR PRN PRN Reason: Wheezing Calcium Carbonate/Glycine (Tums) 500 mg PO BID PRN PRN Reason: Heartburn Last Admin: 02/19/18 11:49 Dose: 500 mg Clonidine HCl (Catapres) 0.1 mg PO BID PRN PRN Reason: Hypertensive Emergency Enoxaparin Sodium (Lovenox) 40 mg SUBQ DAILY [facility] Last Admin: 02/19/18 19:55 Dose: 40 mg Famotidine (Pepcid) 20 mg PO BID BRITTANY Last Admin: 02/19/18 19:55 Dose: 20 mg Hydromorphone HCl (Dilaudid Inj Syringe) 0.2 mg IVP Q30M PRN PRN Reason: breakthrough pain Piperacillin Sod/Tazobactam (Sod 3.375 gm/ Sodium Chloride) 100 mls @ 200 mls/ hr IV Q6H [facility] Last Infusion: 02/20/18 05:56 Dose: Infused Insulin Aspart (Novolog) 1 - 9 unit SUBQ 0800,1200,1700,2100 BRITTANY PRN Reason: Protocol Last Admin: 02/20/18 07:53 Dose: Not Given Ondansetron HCl (Zofran Inj) 4 mg IVP DAILY PRN PRN Reason: nausea/vomiting Oxycodone HCl (Roxicodone) 5 mg PO Q4HR PRN PRN Reason: PAIN Last Admin: 02/19/18 14:58 Dose: 5 mg (Imbruvica 140 Mg) (Capsules) 3 each PO DAILY BRITTANY Last Admin: 02/20/18 08:22 Dose: 3 each Objective - Vital Signs/Intake & Output Reviewed Vital Signs: Yes Vital Signs: Vital Signs x48h Temp Pulse Pulse Resp BP Pulse Ox 02/20/18 10:00 62 16 02/20/18 08:42 37.6 C H 60 17 146/50 H 93 02/20/18 04:05 36.9 C 62 16 115/54 L 95 Intake & Output: Intake & Output 02/17/18 02/18/18 02/19/18 02/20/18 23:59 23:59 23:59 23:59 Intake Total 100 1690 Output Total 1800 Balance 100 -110 - Objective General Appearance: positive: No acute distress, Alert. negative: Lethargic Eyes Bilateral: positive: Normal inspection, PERRL, No lid inflammation, Conjunctivae nml ENT: positive: ENT inspection nml, Pharynx nml, No signs of dehydration. negative: Purulent nasal drainage, Pharyngeal erythema, Oral lesions Neck: positive: Nml inspection, Thyroid nml, No JVD, Trachea midline. negative : Thyromegaly, Lymphadenopathy (R), Lymphadenopathy (L), Stiff neck, Swelling/ bruising, Tracheal deviation Respiratory: positive: Chest non-tender, No respiratory distress, Breath sounds nml. negative: Wheezes, Rales, Rhonchi Cardiovascular: positive: Regular rate & rhythm, No murmur, No gallop. negative : Irregularly irregular, Extrasystoles, Tachycardia, Bradycardia, JVD present, Systolic murmur, Diastolic murmur Peripheral Pulses: 2+ Radial (R), 2+ Radial (L), 2+ Dorsalis pedis (R), 2+ Dorsalis pedis (L) Abdomen: positive: Non-tender, No organomegaly, Nml bowel sounds, No distention. negative: Tenderness, Guarding, Rebound Back: positive: Nml inspection. negative: CVA tenderness (R), CVA tenderness (L ) Skin: positive: Color nml, No rash, Warm, Dry. negative: Cyanosis, Diaphoresis , Pallor Extremities: positive: Non-tender, Full ROM, Nml appearance. negative: Calf tenderness, Joint swelling, Rekha's sign/cords Neurologic/Psychiatric: positive: Oriented x3, Motor nml, Sensation nml, Mood/ affect nml. negative: Weakness, Sensory loss, Facial droop, Slurred/abnml speech, Depressed mood/affect - Lab Results Fish Bones: 02/20/18 04:25 02/20/18 04:25 Other Labs: Lab Results x24hrs 02/20/18 02/20/18 02/20/18 Range/Units 07:43 04:25 04:25 WBC 8.3 (4.8-10.8) x10^3/uL RBC 4.10 L (4.70-6.10) 10^6/uL Hgb 12.6 L (14.0-18.0) g/dL Hct 37.9 L (42.0-52.0) % MCV 92.5 (80.0-94.0) fL MCH 30.7 (27.0-31.0) pg MCHC 33.2 (32.0-36.0) g/dL RDW 13.8 (12.0-15.0) % Plt Count 112 L (130-450) 10^3/uL MPV 9.8 (7.4-11.4) fL Neut # (Auto) Not Reportable Lymph # (Auto) Not Reportable [place] # (Auto) Not Reportable Eos # (Auto) Not Reportable Baso # (Auto) Not Reportable Absolute Nucleated RBC Not Reportable Total Counted 100 Band Neuts % (Manual) 1 (0 - 10) % Abnorm Lymph % (Manual) 0 % Nucleated RBC % Not Reportable Neutrophils # (Manual) 5.1 (1.5-6.6) 10^3/uL Lymphocytes # (Manual) 2.9 (1.5-3.5) 10^3/uL Monocytes # (Manual) 0.3 (0.0-1.0) 10^3/uL Eosinophils # (Manual) 0.0 (0-0.7) 10^3/uL Basophils # (Manual) 0.0 (0-0.1) 10^3/uL Differential Comment MANUAL DIFFERENTIAL Platelet Estimate DECREASED (<130,000) (NORMAL) RBC Morph Micro Appear NORMAL APPEARANCE (NORMAL) Sodium 137 (135-145) mmol/L Potassium 3.7 (3.5-5.0) mmol/L Chloride 103 (101-111) mmol/L Carbon Dioxide 26 (21-32) mmol/L Anion Gap 8.0 (6-13) BUN 8 (6-20) mg/dL Creatinine 0.7 (0.6-1.2) mg/dL Estimated GFR (MDRD) 107 (>89) Glucose 113 H (70-100) mg/dL POC Whole Bld Glucose 128 H (70 - 100) mg/dL Calcium 8.2 L (8.5-10.3) mg/dL Magnesium 1.9 (1.7-2.8) mg/dL Total Bilirubin 1.9 H (0.2-1.0) mg/dL AST 34 (10-42) IU/L ALT 28 (10-60) IU/L Alkaline Phosphatase 45 (42-121) IU/L Total Protein 5.5 L (6.7-8.2) g/dL Albumin 3.2 (3.2-5.5) g/dL Globulin 2.3 (2.1-4.2) g/dL Albumin/Globulin Ratio 1.4 (1.0-2.2) ABX Reporting Has patient been on IV antibiotics over the past 48 hours?: Yes Assessment/Plan - Problem List (1) Fever Impression: Impression: 02/20 pt still had slight elevated temperature but no more fever. blood culture, CXR and UA all are pending. discuss with admission physician Dr. Anastacio Moore, follow up. Dr. Moore state pt stay today, may d/c tomorrow. continue antibiotics, follow up the tests to adjust as needed status post day one of cholecystectomy. nurse report pt had fever at 38.4. pt's is on paper charts of day surgery. will ask assistant case manager to switch to inpt/ob start on Zosyn CXR, UA blood culture IVF of NS continue incentive spirometer (2) CLL (chronic lymphocytic leukemia) Impression: stable, resume home meds follow up out-pt pt's oncologist (3) DM2 (diabetes mellitus, type 2) Impression: 02/20 glucose is controlled, continue slide scale insulin as needed A1C 5.8, but hyperglycemia, possible caused by infection and surgery. slide scale, insulin PRN (4) HTN (hypertension) Impression: stable, will resume home meds after pharmacy reconcile. PRN clonidine (5) COPD (chronic obstructive pulmonary disease) Impression: stable, PRN albuterol, and Duoneb
[2018-02-20 10:43] LABS: BILIRUBIN,URINE NEGATIVE (NEGATIVE); GLUCOSE, URINE (UA) NEGATIVE (NEGATIVE); KETONES,URINE (UA) NEGATIVE (NEGATIVE); LEUKOCYTE ESTERASE, URINE NEGATIVE (NEGATIVE); NITRITE,URINE NEGATIVE (NEGATIVE); OCCULT BLOOD,URINE SMALL (NEGATIVE); PROTEIN,URINE NEGATIVE (NEGATIVE); UROBILINOGEN,URINE 0.2 (NORMAL) E.U./dL (NORMAL)
[2018-02-20] MEDS: FAMOTIDINE 20 MG TABLET PO SCH ×2 (10:50→20:49)
[2018-02-20] MEDS: ENOXAPARIN 40 MG/0.4 ML SYRINGE SUBQ SCH (10:50)
--- NOTE | 2018-02-20 10:50 | XRAY Report ---
Procedure Date: 02/19/2018 Accession Number: [id number] / [id number] Procedure: XR - Chest 1 View X-Ray CPT Code: 28249 FULL RESULT: EXAM: CHEST RADIOGRAPHY EXAM DATE: 02/19/2018 06:20 PM. CLINICAL HISTORY: Fever. COMPARISON: 05/20/2015 TECHNIQUE: 1 view. FINDINGS: Lungs/Pleura: Linear subsegmental atelectasis left hilar region. Faint patchy areas of presumed airspace disease bilaterally.. No pleural effusion. No pneumothorax. Mediastinum: Within exam limitations, the cardiomediastinal contour is normal. Other: None. IMPRESSION: Faint patchy areas of bilateral airspace disease, atelectasis versus infiltrate. RADIA
[2018-02-20 11:06] LABS: BACTERIA,URINE Few /HPF (None Seen); CLARITY,URINE CLEAR (CLEAR); RBC,URINE 0-5 /HPF (0-5); SQUAMOUS EPITHELIAL CELL,UR NONE SEEN (<= Few)
--- NOTE | 2018-02-20 13:42 | PROVIDER PROGRESS NOTE ---
Subjective - General Admit Date: 02/19/18 Procedure Date: 02/18/18 Post Op Days: 2 Procedure Performed: Laparoscopic cholecystectomy and umbilical herniorrhaphy - Review of Systems Wound/Incisions: positive: Drainage ( Again very slight sanguinous under opsite. ) General: positive: No symptoms (Feeling little to no pain.) HEENT: positive: No symptoms Pulmonary: positive: Cough (minimal), Sputum (minimal) Cardiovascular: positive: No symptoms Gastrointestinal: positive: Abdominal pain (mild incisional pain) Genitourinary: positive: No symptoms Musculoskeletal: positive: No symptoms Skin: positive: No symptoms Psychiatric: positive: No symptoms Objective - Patient Data Reviewed Vital Signs: Yes Vital Signs: Vital Signs x48h Temp Pulse Pulse Resp BP Pulse Ox 02/20/18 10:00 62 16 02/20/18 08:42 37.6 C H 60 17 146/50 H 93 Intake & Output: Intake and Output Totals x24h 02/18/18 02/19/18 02/20/18 23:59 23:59 23:59 Intake Total 100 1790 Output Total 1800 Balance 100 -10 - Lab Results Lab Results: 02/20/18 04:25 02/20/18 04:25 Other Lab Results: Lab Results x24hrs 02/20/18 02/20/18 02/20/18 Range/Units 11:28 11:00 10:15 WBC (4.8-10.8) x10^3/uL RBC (4.70-6.10) 10^6/uL Hgb (14.0-18.0) g/dL Hct (42.0-52.0) % MCV (80.0-94.0) fL MCH (27.0-31.0) pg MCHC (32.0-36.0) g/dL RDW (12.0-15.0) % Plt Count (130-450) 10^3/uL MPV (7.4-11.4) fL Neut # (Auto) Lymph # (Auto) [place] # (Auto) Eos # (Auto) Baso # (Auto) Absolute Nucleated RBC Total Counted Band Neuts % (Manual) (0 - 10) % Abnorm Lymph % (Manual) % Nucleated RBC % Neutrophils # (Manual) (1.5-6.6) 10^3/uL Lymphocytes # (Manual) (1.5-3.5) 10^3/uL Monocytes # (Manual) (0.0-1.0) 10^3/uL Eosinophils # (Manual) (0-0.7) 10^3/uL Basophils # (Manual) (0-0.1) 10^3/uL Differential Comment Platelet Estimate (NORMAL) RBC Morph Micro Appear (NORMAL) Sodium (135-145) mmol/L Potassium (3.5-5.0) mmol/L Chloride (101-111) mmol/L Carbon Dioxide (21-32) mmol/L Anion Gap (6-13) BUN (6-20) mg/dL Creatinine (0.6-1.2) mg/dL Estimated GFR (MDRD) (>89) Glucose (70-100) mg/dL POC Whole Bld Glucose 101 H (70 - 100) mg/dL Lactic Acid 1.2 (0.5-2.2) mmol/L Calcium (8.5-10.3) mg/dL Magnesium (1.7-2.8) mg/dL Total Bilirubin (0.2-1.0) mg/dL AST (10-42) IU/L ALT (10-60) IU/L Alkaline Phosphatase (42-121) IU/L Total Protein (6.7-8.2) g/dL Albumin (3.2-5.5) g/dL Globulin (2.1-4.2) g/dL Albumin/Globulin Ratio (1.0-2.2) Urine Color YELLOW Urine Clarity CLEAR (CLEAR) Urine pH 7.0 (5.0-7.5) PH Ur Specific [place] <=1.005 (1.002-1.030) Urine Protein NEGATIVE (NEGATIVE) mg/dL Urine Glucose (UA) NEGATIVE (NEGATIVE) mg/dL Urine Ketones NEGATIVE (NEGATIVE) mg/dL Urine Occult Blood SMALL H (NEGATIVE) Urine Nitrite NEGATIVE (NEGATIVE) Urine Bilirubin NEGATIVE (NEGATIVE) Urine Urobilinogen 0.2 (NORMAL) (NORMAL) E.U./dL Ur Leukocyte Esterase NEGATIVE (NEGATIVE) Urine RBC 0-5 (0-5) /HPF Urine WBC 4-5 (0-3) /HPF Ur Squamous Epith Cells NONE SEEN (<= Few) Urine Bacteria Few (None Seen) /HPF Urine Culture Comments NOT INDICATED 02/20/18 02/20/1802/20/18 Range/Units 07:43 04:25 04:25 WBC 8.3 (4.8-10.8) x10^3/uL RBC 4.10 L (4.70-6.10) 10^6/uL Hgb 12.6 L (14.0-18.0) g/dL Hct 37.9 L (42.0-52.0) % MCV 92.5 (80.0-94.0) fL MCH 30.7 (27.0-31.0) pg MCHC 33.2 (32.0-36.0) g/dL RDW 13.8 (12.0-15.0) % Plt Count 112 L (130-450) 10^3/uL MPV 9.8 (7.4-11.4) fL Neut # (Auto) Not Reportable Lymph # (Auto) Not Reportable [place] # (Auto) Not Reportable Eos # (Auto) Not Reportable Baso # (Auto) Not Reportable Absolute Nucleated RBC Not Reportable Total Counted 100 Band Neuts % (Manual) 1 (0 - 10) % Abnorm Lymph % (Manual) 0 % Nucleated RBC % Not Reportable Neutrophils # (Manual) 5.1 (1.5-6.6) 10^3/uL Lymphocytes # (Manual) 2.9 (1.5-3.5) 10^3/uL Monocytes # (Manual) 0.3 (0.0-1.0) 10^3/uL Eosinophils # (Manual) 0.0 (0-0.7) 10^3/uL Basophils # (Manual) 0.0 (0-0.1) 10^3/uL Differential Comment MANUAL DIFFERENTIAL Platelet Estimate DECREASED (<130,000) (NORMAL) RBC Morph Micro Appear NORMAL APPEARANCE (NORMAL) Sodium 137 (135-145) mmol/L Potassium 3.7 (3.5-5.0) mmol/L Chloride 103 (101-111) mmol/L Carbon Dioxide 26 (21-32) mmol/L Anion Gap 8.0 (6-13) BUN 8 (6-20) mg/dL Creatinine 0.7 (0.6-1.2) mg/dL Estimated GFR (MDRD) 107 (>89) Glucose 113 H (70-100) mg/dL POC Whole Bld Glucose 128 H (70 - 100) mg/dL Lactic Acid (0.5-2.2) mmol/L Calcium 8.2 L (8.5-10.3) mg/dL Magnesium 1.9 (1.7-2.8) mg/dL Total Bilirubin 1.9 H (0.2-1.0) mg/dL AST 34 (10-42) IU/L ALT 28 (10-60) IU/L Alkaline Phosphatase 45 (42-121) IU/L Total Protein 5.5 L (6.7-8.2) g/dL Albumin 3.2 (3.2-5.5) g/dL Globulin 2.3 (2.1-4.2) g/dL Albumin/Globulin Ratio 1.4 (1.0-2.2) Urine Color Urine Clarity (CLEAR) Urine pH (5.0-7.5) PH Ur Specific [place] (1.002-1.030) Urine Protein (NEGATIVE) mg/dL Urine Glucose (UA) (NEGATIVE) mg/dL Urine Ketones (NEGATIVE) mg/dL Urine Occult Blood (NEGATIVE) Urine Nitrite (NEGATIVE) Urine Bilirubin (NEGATIVE) Urine Urobilinogen (NORMAL) E.U./dL Ur Leukocyte Esterase (NEGATIVE) Urine RBC (0-5) /HPF Urine WBC (0-3) /HPF Ur Squamous Epith Cells (<= Few) Urine Bacteria (None Seen) /HPF Urine Culture Comments - Imaging Results Radiology Imaging: positive: Final report received, EMP read indepedently Imaging Results Comments: CXR: patchy changes c/w atelectasis vs infiltrates bilaterally - Current Medications Current Medications: Current Medications Generic Name Dose Route Start Last Admin Trade Name Freq PRN Reason Stop Dose Admin Acetaminophen 650 mg 02/19/18 16:57 02/20/18 00:03 Tylenol PO 650 mg Q4HR PRN Administration Pain or Fever > 38C (100.4F) Calcium Carbonate/Glycine 500 mg 02/19/18 11:21 02/19/18 11:49 Tums PO 500 mg BID PRN Administration Heartburn Enoxaparin Sodium 40 mg 02/19/18 19:00 02/20/18 10:50 Lovenox SUBQ 40 mg DAILY BRITTANY Administration Famotidine 20 mg 02/19/18 12:00 02/20/18 10:50 Pepcid PO 20 mg BID BRITTANY Administration Piperacillin Sod/Tazobactam 100 mls @ 200 mls/hr 02/19/18 17:00 02/20/18 11: 58 Sod 3.375 gm/ Sodium Chloride IV Infused Q6H [facility] Infusion Insulin Aspart 1 - 9 unit 02/19/18 08:00 02/20/18 11:58 Novolog SUBQ Not Given 0800,1200,1700,2100 [facility] Protocol Oxycodone HCl 5 mg 02/19/18 07:08 02/19/18 14:58 Roxicodone PO 5 mg Q4HR PRN Administration PAIN (Imbruvica 140 Mg) 3 each 02/19/18 09:00 02/20/18 08:22 Capsules PO 3 each DAILY BRITTANY Administration - Physical Exam Wound/Incisions: positive: Healing well, Other (minimal sanguinous drainage under tegaderm dressings) General Appearance: positive: No acute distress, Alert Eyes Bilateral: positive: No scleral icterus ENT: positive: Pharynx nml, No signs of dehydration Neck: positive: No JVD Respiratory: positive: Chest non-tender, No respiratory distress, Breath sounds nml. negative: Wheezes, Rales, Rhonchi Cardiovascular: positive: Regular rate & rhythm, No murmur, No gallop Abdomen: positive: Nml bowel sounds, Tenderness (minimal incisional tenderness) Skin: positive: Color nml, No rash, Warm, Dry. negative: Cyanosis Extremities: positive: No pedal edema. negative: Calf tenderness Neurologic/Psychiatric: positive: Oriented x3 ABX Reporting Has patient been on IV antibiotics over the past 48 hours?: No Impression/Plan - Problem List Problem List: 1. POD 2 s/p lap norah; low grade fever and CXR findings suggestive of atelectasis vs infiltrates; clinically ow doing well. Rec: pulmonary toilet, increase diet and activity as tolerated; recheck CXR in AM; home tomorrow if continues to improve. OW per hospitalists.
[2018-02-20] MEDS ORDERED: SODIUM CHLORIDE FLUSH 0.9% 10 ML SYRINGE ONE ×2 (16:19→22:14)
[2018-02-21 04:55] LABS: BASOPHILS % (AUTO) 0.7 %; EOSINOPHILS % (AUTO) 0.9 %; HGB - HEMOGLOBIN 11.9 g/dL (14.0-18.0); LYMPHOCYTES % (AUTO) 45.7 %; MEAN CORPUSCULAR HGB CONC 33.7 g/dL (32.0-36.0); MEAN CORPUSCULAR VOLUME 91.8 fL (80.0-94.0); MEAN PLATELET VOLUME 9.8 fL (7.4-11.4); MONOCYTES % (AUTO) 12.4 %; NEUTROPHILS % (AUTO) 40.3 %; PLT - PLATELET COUNT 125 10^3/uL (130-450); RED BLOOD COUNT 3.83 10^6/uL (4.70-6.10); RED CELL DISTRIBUTION WIDTH 13.7 % (12.0-15.0); WHITE BLOOD COUNT 7.2 x10^3/uL (4.8-10.8)
[2018-02-21 05:04] LABS: ALBUMIN 3.3 g/dL (3.2-5.5); ALBUMIN/GLOBULIN RATIO 1.3 (1.0-2.2); BILIRUBIN,TOTAL 1.1 mg/dL (0.2-1.0); CALCIUM 8.2 mg/dL (8.5-10.3); CREATININE 0.7 mg/dL (0.6-1.2); TOTAL PROTEIN 5.8 g/dL (6.7-8.2)
[2018-02-21 05:24] LABS: ABNORMAL LYMPHS % (MANUAL) 0 %
[2018-02-21] MEDS: PIPERACILLIN/TAZOBACTAM 3.375 GM in SODIUM CHLORIDE 0.9% MINIBAG 100 ML IV SCH (05:54)
[2018-02-21] MEDS: SODIUM CHLORIDE FLUSH 0.9% 10 ML SYRINGE IVP PRN ×2 (05:55→06:38)
[2018-02-21 05:58] LABS: BAND NEUTROPHILS % (MANUAL) 1 %; BASOPHILS # (MANUAL) 0.1 10^3/uL (0-0.1); BASOPHILS % (MANUAL) 1 %; DIFFERENTIAL COMMENT MANUAL DIFFERENTIAL; EOSINOPHILS # (MANUAL) 0.1 10^3/uL (0-0.7); LYMPHOCYTES # (MANUAL) 2.7 10^3/uL (1.5-3.5); LYMPHOCYTES % (MANUAL) 38 %; METAMYELOCYTES % (MANUAL) 1 %; MONOCYTES # (MANUAL) 0.5 10^3/uL (0.0-1.0); MYELOCYTES % (MANUAL) 1 %; NEUTROPHILS # (MANUAL) 3.7 10^3/uL (1.5-6.6); NEUTROPHILS % (MANUAL) 50 %; PLATELET ESTIMATE, MANUAL DECREASED (<130,000) (NORMAL); RBC MORPHOLOGY (MULTIPLE) NORMAL APPEARANCE (NORMAL)
[2018-02-21] MEDS: INSULIN ASPART 300 UNIT/3 ML PEN SUBQ SCH (07:32)
--- NOTE | 2018-02-21 07:39 | XRAY Report ---
Reason: fever postop lap norah; atelectasis vs pneumonitis Procedure Date: 02/21/2018 Accession Number: [id number] / [id number] Procedure: XR - Chest 2 View X-Ray CPT Code: 28278 FULL RESULT: EXAM: CHEST RADIOGRAPHY EXAM DATE: 02/21/2018 07:27 AM. CLINICAL HISTORY: Fever. COMPARISON: CHEST 1 VIEW 02/19/2018. TECHNIQUE: 2 views. FINDINGS: Lungs/Pleura: No focal opacities evident. No pleural effusion. No pneumothorax. Normal volumes. Mediastinum: Heart and mediastinal contours are unremarkable. Other: None. IMPRESSION: Normal 2-view chest radiography. RADIA
[2018-02-21] MEDS: FAMOTIDINE 20 MG TABLET PO SCH (08:06)
[2018-02-21] MEDS: ENOXAPARIN 40 MG/0.4 ML SYRINGE SUBQ SCH (08:08)
--- NOTE | 2018-02-21 08:48 | PROVIDER PROGRESS NOTE ---
Subjective - General Admit Date: 02/19/18 Procedure Date: 02/18/18 Post Op Days: 3 Procedure Performed: Laparoscopic cholecystectomy and umbilical herniorrhaphy - Review of Systems Wound/Incisions: positive: Healing well, Other (minimal sanguinous drainage under tegaderm dressings) General: positive: No symptoms (Feeling little to no pain.) HEENT: positive: No symptoms Pulmonary: positive: No symptoms. negative: Shortness of breath, Pleuritic chest pain, Cough, Sputum, Hemoptysis, Wheezing Cardiovascular: positive: No symptoms Gastrointestinal: positive: No symptoms Genitourinary: positive: Frequency. negative: Dysuria, Burning, Pain Musculoskeletal: positive: No symptoms Skin: positive: No symptoms Psychiatric: positive: No symptoms - Other Other Information/Narrative: feels well; wants to go home. denies abd pain; tolerating po well, ambulating well; voiding frequently but no dysuria Objective - Patient Data Reviewed Vital Signs: Yes Vital Signs: Vital Signs x48h Temp Pulse Resp BP Pulse Ox 02/21/18 05:58 36.9 C 55 L 18 166/58 H 94 Intake & Output: Intake and Output Totals x24h 02/19/18 02/20/18 02/21/18 23:59 23:59 23:59 Intake Total 100 3120 336 Output Total 2400 1100 Balance 100 720 -764 - Lab Results Lab Results: 02/21/18 04:25 02/21/18 04:25 Other Lab Results: Lab Results x24hrs 02/21/18 02/21/18 02/21/18 Range/Units 07:23 04:25 04:25 WBC 7.2 (4.8-10.8) x10^3/uL RBC 3.83 L (4.70-6.10) 10^6/uL Hgb 11.9 L (14.0-18.0) g/dL Hct 35.1 L (42.0-52.0) % MCV 91.8 (80.0-94.0) fL MCH 31.0 (27.0-31.0) pg MCHC 33.7 (32.0-36.0) g/dL RDW 13.7 (12.0-15.0) % Plt Count 125 L (130-450) 10^3/uL MPV 9.8 (7.4-11.4) fL Neut # (Auto) Not Reportable Lymph # (Auto) Not Reportable Jewell # (Auto) Not Reportable Eos # (Auto) Not Reportable Baso # (Auto) Not Reportable Absolute Nucleated RBC Not Reportable Total Counted 100 Band Neuts % (Manual) 1 (0 - 10) % Abnorm Lymph % (Manual) 0 % Metamyelocytes % 1 H ( - 0) % Myelocytes % 1 H ( - 0) % Nucleated RBC % Not Reportable Neutrophils # (Manual) 3.7 (1.5-6.6) 10^3/uL Lymphocytes # (Manual) 2.7 (1.5-3.5) 10^3/uL Monocytes # (Manual) 0.5 (0.0-1.0) 10^3/uL Eosinophils # (Manual) 0.1 (0-0.7) 10^3/uL Basophils # (Manual) 0.1 (0-0.1) 10^3/uL Differential Comment MANUAL DIFFERENTIAL Platelet Estimate DECREASED (<130,000) (NORMAL) RBC Morph Micro Appear NORMAL APPEARANCE (NORMAL) Sodium 139 (135-145) mmol/L Potassium 3.4 L (3.5-5.0) mmol/L Chloride 104 (101-111) mmol/L Carbon Dioxide 26 (21-32) mmol/L Anion Gap 9.0 (6-13) BUN 9 (6-20) mg/dL Creatinine 0.7 (0.6-1.2) mg/dL Estimated GFR (MDRD) 107 (>89) Glucose 107 H (70-100) mg/dL POC Whole Bld Glucose 97 (70 - 100) mg/dL Lactic Acid (0.5-2.2) mmol/L Calcium 8.2 L (8.5-10.3) mg/dL Total Bilirubin 1.1 H (0.2-1.0) mg/dL AST 24 (10-42) IU/L ALT 26 (10-60) IU/L Alkaline Phosphatase 40 L (42-121) IU/L Total Protein 5.8 L (6.7-8.2) g/dL Albumin 3.3 (3.2-5.5) g/dL Globulin 2.5 (2.1-4.2) g/dL Albumin/Globulin Ratio 1.3 (1.0-2.2) Urine Color Urine Clarity (CLEAR) Urine pH (5.0-7.5) PH Ur Specific [place] (1.002-1.030) Urine Protein (NEGATIVE) mg/dL Urine Glucose (UA) (NEGATIVE) mg/dL Urine Ketones (NEGATIVE) mg/dL Urine Occult Blood (NEGATIVE) Urine Nitrite (NEGATIVE) Urine Bilirubin (NEGATIVE) Urine Urobilinogen (NORMAL) E.U./dL Ur Leukocyte Esterase (NEGATIVE) Urine RBC (0-5) /HPF Urine WBC (0-3) /HPF Ur Squamous Epith Cells (<= Few) Urine Bacteria (None Seen) /HPF Urine Culture Comments 02/20/18 02/20/18 02/20/18 Range/Units 20:44 16:41 11:28 WBC (4.8-10.8) x10^3/uL RBC (4.70-6.10) 10^6/uL Hgb (14.0-18.0) g/dL Hct (42.0-52.0) % MCV (80.0-94.0) fL MCH (27.0-31.0) pg MCHC (32.0-36.0) g/dL RDW (12.0-15.0) % Plt Count (130-450) 10^3/uL MPV (7.4-11.4) fL Neut # (Auto) Lymph # (Auto) Jewell # (Auto) Eos # (Auto) Baso # (Auto) Absolute Nucleated RBC Total Counted Band Neuts % (Manual) (0 - 10) % Abnorm Lymph % (Manual) % Metamyelocytes % ( - 0) % Myelocytes % ( - 0) % Nucleated RBC % Neutrophils # (Manual) (1.5-6.6) 10^3/uL Lymphocytes # (Manual) (1.5-3.5) 10^3/uL Monocytes # (Manual) (0.0-1.0) 10^3/uL Eosinophils # (Manual) (0-0.7) 10^3/uL Basophils # (Manual) (0-0.1) 10^3/uL Differential Comment Platelet Estimate (NORMAL) RBC Morph Micro Appear (NORMAL) Sodium (135-145) mmol/L Potassium (3.5-5.0) mmol/L Chloride (101-111) mmol/L Carbon Dioxide (21-32) mmol/L Anion Gap (6-13) BUN (6-20) mg/dL Creatinine (0.6-1.2) mg/dL Estimated GFR (MDRD) (>89) Glucose (70-100) mg/dL POC Whole Bld Glucose 123 H 102 H 101 H (70 - 100) mg/dL Lactic Acid (0.5-2.2) mmol/L Calcium (8.5-10.3) mg/dL Total Bilirubin (0.2-1.0) mg/dL AST (10-42) IU/L ALT (10-60) IU/L Alkaline Phosphatase (42-121) IU/L Total Protein (6.7-8.2) g/dL Albumin (3.2-5.5) g/dL Globulin (2.1-4.2) g/dL Albumin/Globulin Ratio (1.0-2.2) Urine Color Urine Clarity (CLEAR) Urine pH (5.0-7.5) PH Ur Specific [place] (1.002-1.030) Urine Protein (NEGATIVE) mg/dL Urine Glucose (UA) (NEGATIVE) mg/dL Urine Ketones (NEGATIVE) mg/dL Urine Occult Blood (NEGATIVE) Urine Nitrite (NEGATIVE) Urine Bilirubin (NEGATIVE) Urine Urobilinogen (NORMAL) E.U./dL Ur Leukocyte Esterase (NEGATIVE) Urine RBC (0-5) /HPF Urine WBC (0-3) /HPF Ur Squamous Epith Cells (<= Few) Urine Bacteria (None Seen) /HPF Urine Culture Comments 02/20/18 02/20/18 Range/Units 11:00 10:15 WBC (4.8-10.8) x10^3/uL RBC (4.70-6.10) 10^6/uL Hgb (14.0-18.0) g/dL Hct (42.0-52.0) % MCV (80.0-94.0) fL MCH (27.0-31.0) pg MCHC (32.0-36.0) g/dL RDW (12.0-15.0) % Plt Count (130-450) 10^3/uL MPV (7.4-11.4) fL Neut # (Auto) Lymph # (Auto) Jewell # (Auto) Eos # (Auto) Baso # (Auto) Absolute Nucleated RBC Total Counted Band Neuts % (Manual) (0 - 10) % Abnorm Lymph % (Manual) % Metamyelocytes % ( - 0) % Myelocytes % ( - 0) % Nucleated RBC % Neutrophils # (Manual) (1.5-6.6) 10^3/uL Lymphocytes # (Manual) (1.5-3.5) 10^3/uL Monocytes # (Manual) (0.0-1.0) 10^3/uL Eosinophils # (Manual) (0-0.7) 10^3/uL Basophils # (Manual) (0-0.1) 10^3/uL Differential Comment Platelet Estimate (NORMAL) RBC Morph Micro Appear (NORMAL) Sodium (135-145) mmol/L Potassium (3.5-5.0) mmol/L Chloride (101-111) mmol/L Carbon Dioxide (21-32) mmol/L Anion Gap (6-13) BUN (6-20) mg/dL Creatinine (0.6-1.2) mg/dL Estimated GFR (MDRD) (>89) Glucose (70-100) mg/dL POC Whole Bld Glucose (70 - 100) mg/dL Lactic Acid 1.2 (0.5-2.2) mmol/L Calcium (8.5-10.3) mg/dL Total Bilirubin (0.2-1.0) mg/dL AST (10-42) IU/L ALT (10-60) IU/L Alkaline Phosphatase (42-121) IU/L Total Protein (6.7-8.2) g/dL Albumin (3.2-5.5) g/dL Globulin (2.1-4.2) g/dL Albumin/Globulin Ratio (1.0-2.2) Urine Color YELLOW Urine Clarity CLEAR (CLEAR) Urine pH 7.0 (5.0-7.5) PH Ur Specific [place] <=1.005 (1.002-1.030) Urine Protein NEGATIVE (NEGATIVE) mg/dL Urine Glucose (UA) NEGATIVE (NEGATIVE) mg/dL Urine Ketones NEGATIVE (NEGATIVE) mg/dL Urine Occult Blood SMALL H (NEGATIVE) Urine Nitrite NEGATIVE (NEGATIVE) Urine Bilirubin NEGATIVE (NEGATIVE) Urine Urobilinogen 0.2 (NORMAL) (NORMAL) E.U./dL Ur Leukocyte Esterase NEGATIVE (NEGATIVE) Urine RBC 0-5 (0-5) /HPF Urine WBC 4-5 (0-3) /HPF Ur Squamous Epith Cells NONE SEEN (<= Few) Urine Bacteria Few (None Seen) /HPF Urine Culture Comments NOT INDICATED - Imaging Results Radiology Imaging: positive: Final report received, EMP read contemporaneously Imaging Results Comments: CXR today: nl - Current Medications Current Medications: Current Medications Generic Name Dose Route Start Last Admin Trade Name Freq PRN Reason Stop Dose Admin Acetaminophen 650 mg 02/19/18 16:57 02/20/18 15:32 Tylenol PO 650 mg Q4HR PRN Administration Pain or Fever > 38C (100.4F) Calcium Carbonate/Glycine 500 mg 02/19/18 11:21 02/19/18 11:49 Tums PO 500 mg BID PRN Administration Heartburn Enoxaparin Sodium 40 mg 02/19/18 19:00 02/21/18 08:08 Lovenox SUBQ Not Given DAILY BRITTANY Famotidine 20 mg 02/19/18 12:00 02/21/18 08:06 Pepcid PO 20 mg BID BRITTANY Administration Piperacillin Sod/Tazobactam 100 mls @ 200 mls/hr 02/19/18 17:00 02/21/18 06: 24 Sod 3.375 gm/ Sodium Chloride IV Infused Q6H [facility] Infusion Insulin Aspart 1 - 9 unit 02/19/18 08:00 02/21/18 07:32 Novolog SUBQ Not Given 0800,1200,1700,2100 [facility] Protocol Oxycodone HCl 5 mg 02/19/18 07:08 02/19/18 14:58 Roxicodone PO 5 mg Q4HR PRN Administration PAIN (Imbruvica 140 Mg) 3 each 02/19/18 09:00 02/21/18 08:06 Capsules PO 3 each DAILY BRITTANY Administration Sodium Chloride 10 ml 02/21/18 05:48 02/21/18 06:38 Normal Saline Flush 0.9% IVP 10 ml PRN PRN Administration NEEDED PER PROVIDER ORDERS - Physical Exam Wound/Incisions: positive: Healing well, Drainage (minimal beneath tegaderm dressings; will change prior to d/c) General Appearance: positive: No acute distress, Alert Abdomen: positive: Non-tender ABX Reporting Has patient been on IV antibiotics over the past 48 hours?: Yes Impression/Plan - Problem List Problem List: 1. Acute cholecystitis, doing well po DAy 3; ready for d/c home; non narcotic analgesics only at this time. 2. Postop fever, resolved; no evidence of infection clinically at this time; ok to d/c antibiotics and send home.
[2018-02-21] MEDS ORDERED: IBUPROFEN 400 MG TABLET PO PRN (08:51)
--- NOTE | 2018-02-21 10:50 | Discharge Plan ---
Discharge Plan Disposition: Home, Self Care Condition: Good Prescriptions: Blood-Glucose Meter [Glucometer] 1 each MC TID #1 each Docusate Sodium 100 mg PO BID PRN #10 capsule PRN Reason: Constipation Insulin Aspart [Novolog Flexpen] 0 unit SUBQ ACHS #5 each Lancets/Blood Glucose Strips [Fora [id number] Strp-Lnct] 1 each MC TID #15 combo..pkg oxyCODONE [Roxicodone] 5 mg PO Q4H PRN #20 tablet PRN Reason: Pain Pen Needle, Diabetic [Pen Orient] 1 each MC TID #15 dis.needle Diet: Regular Activity Restrictions: Additional Comments (no lifting anything over 15 pounds for 6 weeks to allow for optimal healing and to decrease the likelihood that a hernia would occur.) Shower Restrictions: No Driving Restrictions: No Weight Bearing: Full Weight Additional Instructions or Follow Up instructions: You may follow up your PCP in one week, follow up Dr. Mp Osorio in two weeks, follow up your oncologist as the schedule. You may resume your home medications as the schedule. You may not lift anything over 15 pounds for 6 weeks to allow for optimal healing and to decrease the likelihood that a hernia would occur. Should your symptoms return or worsen, you may present ER or call 911 for help. No Smoking: If you smoke, Please STOP! Call for help. Follow-up with: Diego Mg MD [Physician No Access] -
[2018-02-21 11:01] VITALS: BP 157/75
--- NOTE | 2018-02-21 11:03 | DISCHARGE SUMMARY ---
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 Chronic lymphocytic leukemia (CLL), B-cell (C91.10) chronic, stable. HTN (hypertension) (I10) chronic, stable. Acute cholecystitis (K81.0) new on this admit, now post op, stable. 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 Obstructive sleep apnea (G47.33) chronic, stable. Fever (R50.9) new, now resolved. 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 He presented to the hospital with RUQ pain starting on 02/17/18. Overnight it progressed to nausea and vomiting with RUQ pain. In the ED, he was identified as having acute cholecystitis. He was taken to the OR by Dr. Mp Nazario. There were not any perioperative or immediate post op complications. The hospitalist service was asked to consult for management of his diabetes in the inpatient setting. - HOSPITAL COURSE Hospital Course: (1) Fever The patient was noted to have an elevated temp charted at 38.1 post cholecystectomy. The patient was changed to inpatient status. The patient was started on IV Zosyn. A chest x-ray, UA, and blood cultures were obtained. The patient was given IVF boluses. He was continued on incentive spirometer. All testing showed no evidence of infection source, and it was concluded that this fever was of unknown etiology. The case was discussed with admission physician Dr. Anastacio Moore, who recommends follow up. The patient was not continued on antibiotics as there was no infection source identified. He was clinically back to baseline. (2) CLL (chronic lymphocytic leukemia) stable, resume home meds. Follow up out-pt with oncologist as scheduled. (3) DM2 (diabetes mellitus, type 2) The patient's glucose was well controlled throughout his stay. He was continued on sliding scale insulin as needed. A hemoglobin A1C was at 5.8%, but hyperglycemia was thought to have contributed to the fever. The patient was continued on his home routine of Metformin upon discharge and no changes were made. Lancets and diabetic supplies were sent to the pharmacy as per patient request. (4) HTN (hypertension) The patient has a long history of this and takes fosinopril and chlorthalidone at home. This condition is considered stable and there were no changes made. (5) COPD (chronic obstructive pulmonary disease) The patient was not thought to have any exacerbations during this stay. He was given PRN albuterol, and Duonebs while hospitalized. Disposition: The patient was medically stable upon discharge. He had 2 dressing to his mid-RUQs that were noted to be CDI without evidence of infection. He is to follow up with his PCP within one week and GI surgery. He was ambulatory and did not require oxygen upon discharge. - ALLERGIES Allergies/Adverse Reactions: Allergies Allergy/AdvReac Type Severity Reaction Status Date / Time No Known Drug Allergies Allergy Verified 05/20/15 09:58 - MEDICATIONS Home Medications: Ambulatory Orders Medication Instructions Recorded Confirmed Blood-Glucose Meter [Glucometer] 1 each TID #1 each 02/19/18 Docusate Sodium 100 mg PO BID PRN #10 capsule 02/19/18 Insulin Aspart [Novolog Flexpen] 0 unit SUBQ ACHS #5 each 02/19/18 Lancets/Blood Glucose Strips [Fora 1 each TID #15 combo..pkg 02/19/18 [id number] Strp-Lnct] Pen Needle, Diabetic [Pen Ronks] 1 each TID #15 dis.needle 02/19/18 Aspirin Chewable [St Jhony 81 mg PO DAILY 02/20/18 02/20/18 Aspirin] Calcium Carbonate/Vitamin D3 2 tab PO DAILY 02/20/18 02/20/18 [Calcium 250-Vit D3 125 Tablet] Chlorthalidone 25 mg PO DAILY 02/20/18 02/20/18 Cholecalciferol (Vitamin D3) 4,000 unit PO DAILY 02/20/18 02/20/18 [Vitamin D3] Fluticasone [Flonase] 2 sprays MARIA T DAILY 02/20/18 02/20/18 Fosinopril Sodium 20 mg PO DAILY 02/20/18 02/20/18 Ibrutinib [Imbruvica] 420 mg PO DAILY 02/20/18 02/20/18 Metformin HCl 1,000 mg PO BID 02/20/18 02/20/18 Omeprazole 20 mg PO BIDAC 02/20/18 02/20/18 Simvastatin [Zocor] 40 mg PO QPM 02/20/18 02/20/18 oxyCODONE [Roxicodone] 5 mg PO Q4H PRN #20 tablet 02/21/18 - PHYSICAL EXAM AT DISCHARGE General Appearance: positive: No acute distress, Alert Eyes Bilateral: positive: Normal inspection, PERRL ENT: positive: ENT inspection nml, Pharynx nml, No signs of dehydration Neck: positive: Nml inspection, Thyroid nml, No JVD Respiratory: positive: Chest non-tender, No respiratory distress, Breath sounds nml Cardiovascular: positive: Regular rate & rhythm, No gallop, Systolic murmur Peripheral Pulses: positive: 2+ Abdomen: positive: Nml bowel sounds, Tenderness, Guarding, Other (2 dressings to R abdominal quadrents CDI upon exam.) Skin: positive: Color nml, No rash, Warm, Dry Extremities: positive: Non-tender, Full ROM, Nml appearance, No pedal edema Neurologic/Psychiatric: positive: Oriented x3, CN's nml (2-12), Motor nml, Sensation nml, Mood/affect nml Reflexes: Bicep (R): 3+, Bicep (L): 3+ - LABS Result Diagrams: 02/21/18 04:25 02/21/18 04:25 - DIAGNOSTIC IMAGING Diagnostic Imaging Results: Final report reviewed Diagnostic Imaging Results Comments: EXAM: ABDOMEN ULTRASOUND LIMITED, RUQ EXAM DATE: 02/18/2018 04:15 PM. IMPRESSION: 1. Cholelithiasis with cholecystitis. 2. 2 hyperechoic foci right lobe of the liver, possible hemangiomas. Suggest follow-up by abdomen CT with hemangioma protocol on a routine outpatient basis. EXAM: CT ABDOMEN AND PELVIS IMPRESSION: 1. Gallbladder wall thickening with mild adjacent inflammatory change is most in keeping with acute cholecystitis as demonstrated on ultrasound. 2. Diverticulosis. 3. Moderately enlarged prostate gland. EXAM: CHEST RADIOGRAPHY EXAM DATE: 02/19/2018 06:20 PM. IMPRESSION: Faint patchy areas of bilateral airspace disease, atelectasis versus infiltrate. EXAM: CHEST RADIOGRAPHY EXAM DATE: 02/21/2018 07:27 AM. IMPRESSION: Normal 2-view chest radiography. - FOLLOW UP Follow Up: Disposition: Home, Self Care Condition: Good Prescriptions: Blood-Glucose Meter [Glucometer] 1 each MC TID #1 each Docusate Sodium 100 mg PO BID PRN #10 capsule PRN Reason: Constipation Insulin Aspart [Novolog Flexpen] 0 unit SUBQ ACHS #5 each Lancets/Blood Glucose Strips [Fora [id number] Strp-Lnct] 1 each MC TID #15 combo..pkg oxyCODONE [Roxicodone] 5 mg PO Q4H PRN #20 tablet PRN Reason: Pain Pen Needle, Diabetic [Pen Ronks] 1 each MC TID #15 dis.needle Diet: Regular Activity Restrictions: Additional Comments (no lifting anything over 15 pounds for 6 weeks to allow for optimal healing and to decrease the likelihood that a hernia would occur.) Shower Restrictions: No Driving Restrictions: No Weight Bearing: Full Weight Additional Instructions or Follow Up instructions: You may follow up your PCP in one week, follow up Dr. Mp Osorio in two weeks, follow up your oncologist as the schedule. You may resume your home medications as the schedule. You may not lift anything over 15 pounds for 6 weeks to allow for optimal healing and to decrease the likelihood that a hernia would occur. Should your symptoms return or worsen, you may present ER or call 911 for help. - TIME SPENT Time Spent in Discharge (Minutes): 45
== END 2018-02-21 11:11 | disposition home or self-care (01) ==
LOC: ED 11:45 → SDS 18:15 → MS2 22:24 → SDS 02-19 22:27 → MS2 02-19 22:28
PROVIDERS: ADMIT Internal Medicine; ATTEND Nurse Practitioner
PROC: 0FT44ZZ Resection of Gallbladder, Percutaneous Endoscopic Approach (ICD-10-PCS; principal; 2018-02-19)
DX: K80.12 Calculus of gallbladder with acute and chronic cholecystitis without obstruction (principal); R50.82 Postprocedural fever; E11.9 Type 2 diabetes mellitus without complications; Z79.84 Long term (current) use of oral hypoglycemic drugs; C91.10 Chronic lymphocytic leukemia of B-cell type not having achieved remission; D59.1 Other autoimmune hemolytic anemias; I10 Essential (primary) hypertension; J44.9 Chronic obstructive pulmonary disease, unspecified; G47.33 Obstructive sleep apnea (adult) (pediatric); K42.9 Umbilical hernia without obstruction or gangrene; K76.9 Liver disease, unspecified; Z79.82 Long term (current) use of aspirin; K21.9 Gastro-esophageal reflux disease without esophagitis; Z87.891 Personal history of nicotine dependence
CPT/HCPCS: 36415; 47562; 71045; 71046; 74177; 76705; 80053; 81001; 83036; 83605; 83690; 83735; 84484; 85025; 85027; 87040; 93005; 96365; 99283; 99284; A9270; G0378; J0131; J1650; J7120; Q9967; 81003; 87086

== ENCOUNTER 2018-09-08 13:51 | Emergency (ER) | payer OTHER ==
[2018-09-08 14:02] VITALS: BP 125/42
--- NOTE | 2018-09-08 14:19 | ED Physician Documentation ---
PD HPI URI - Stated complaint Stated Complaint: COUGH/BODY ACHES - Chief complaint Chief Complaint: Resp - History obtained from History obtained from: Patient - History of Present Illness Timing - onset: How many days ago (few days to a week) Timing duration: Days Timing details: Gradual onset, Still present (He has had a cough with some nasal congestion is having sternal area pain with coughing. He denies any rest pain. He has not noticed any with deep inspiration. He denies any wheezing. He has not had any pedal edema nor orthopnea.) Associated symptoms: Chills, Nasal congestion, Productive cough, Chest pain. No: Fever, Dyspnea, NVD Contributing factors: No: Sick contact, COPD / asthma Similar symptoms before: Has not had sx before Recently seen: Not recently seen Review of Systems Constitutional: reports: Chills, Myalgias. denies: Fever Nose: reports: Congestion Throat: denies: Sore throat Cardiac: reports: Chest pain / pressure (sternal with coughing) Respiratory: reports: Cough. denies: Dyspnea GI: denies: Abdominal Pain, Nausea, Vomiting, Diarrhea Musculoskeletal: denies: Extremity swelling Neurologic: reports: Generalized weakness. denies: Focal weakness, Numbness, Near syncope, Headache PD PAST MEDICAL HISTORY - Past Medical History Cardiovascular: Murmur Respiratory: Sleep apnea Endocrine/Autoimmune: None GI: None : None HEENT: None Psych: None Musculoskeletal: None Derm: None Other Past Medical History: cancer - Past Surgical History Past Surgical History: Yes General: Colonoscopy, Other Ortho: Knee replacement - Present Medications Home Medications: Ambulatory Orders Medication Instructions Recorded Confirmed Blood-Glucose Meter [Glucometer] 1 each TID #1 each 02/19/18 Docusate Sodium 100 mg PO BID PRN #10 capsule 02/19/18 Lancets/Blood Glucose Strips [Fora 1 each TID #15 combo..pkg 02/19/18 [id number] Strp-Lnct] Pen Needle, Diabetic [Pen [place]] 1 each TID #15 dis.needle 02/19/18 Aspirin Chewable [St Jhony 81 mg PO DAILY 02/20/18 02/20/18 Aspirin] Calcium Carbonate/Vitamin D3 2 tab PO DAILY 02/20/18 02/20/18 [Calcium 250-Vit D3 125 Tablet] Chlorthalidone 25 mg PO DAILY 02/20/18 02/20/18 Cholecalciferol (Vitamin D3) 4,000 unit PO DAILY 02/20/18 02/20/18 [Vitamin D3] Fosinopril Sodium 20 mg PO DAILY 02/20/18 02/20/18 Ibrutinib [Imbruvica] 420 mg PO DAILY 02/20/18 02/20/18 Metformin HCl 1,000 mg PO BID 02/20/18 02/20/18 Omeprazole 20 mg PO BIDAC 02/20/18 02/20/18 Simvastatin [Zocor] 40 mg PO QPM 02/20/18 02/20/18 Benzonatate [Tessalon Perle] 100 mg PO TID PRN #20 capsule 09/08/18 Dexamethasone [Decadron] 4 mg PO DAILY #5 tablet 09/08/18 Oseltamivir [Tamiflu] 75 mg PO BID #10 capsule 09/08/18 Tramadol HCl 50 mg PO Q6H PRN #15 tablet 09/08/18 - Allergies Allergies/Adverse Reactions: Allergies Allergy/AdvReac Type Severity Reaction Status Date / Time No Known Drug Allergies Allergy Verified 05/20/15 09:58 - Social History Does the pt smoke?: No Smoking Status: Never smoker Does the pt drink ETOH?: No Does the pt have substance abuse?: No - Immunizations Immunizations are current?: Yes PD ED PE NORMAL - Vitals Vital signs reviewed: Yes - General General: Alert and oriented X 3, No acute distress, Well developed/nourished - HEENT HEENT: Ears normal, Moist mucous membranes, Pharynx benign - Neck Neck: Supple, no meningeal sign, No adenopathy - Cardiac Cardiac: RRR, No murmur - Respiratory Respiratory: Clear bilaterally - Abdomen Abdomen: Soft, Non tender - Derm Derm: Normal color, Warm and dry, No rash - Neuro Neuro: Alert and oriented X 3, No motor deficit, Normal speech Eye Opening: Spontaneous Motor: Obeys Commands Verbal: Oriented GCS Score: 15 Results - Vitals Vitals: Oxygen O2 Source Room air - Labs Labs: Laboratory Tests 09/08/18 14:35 Influenza A (Rapid) POSITIVE H Influenza B (Rapid) Negative PD MEDICAL DECISION MAKING - ED course Complexity details: reviewed results, considered differential (Could be viral such as flu. However he has predominantly cough symptoms with some productivity and so may have a primary bronchitis with consideration of bacterial.), d/w patient Departure - Departure Disposition: 01 Home, Self Care Clinical Impression: Influenza A Bronchitis, acute Qualifiers: Bronchitis organism: unspecified organism Qualified Code(s): J20.9 - Acute bronchitis, unspecified Condition: Stable Record reviewed to determine appropriate education?: Yes Instructions: ED Upper Resp Infec Abx Tx Prescriptions: Benzonatate [Tessalon Perle] 100 mg PO TID PRN #20 capsule PRN Reason: Cough Dexamethasone [Decadron] 4 mg PO DAILY #5 tablet Oseltamivir [Tamiflu] 75 mg PO BID #10 capsule Tramadol HCl 50 mg PO Q6H PRN #15 tablet PRN Reason: Pain Comments: Your flu test is positive. Your chest x-ray appears clear. I think your symptoms are from the flu and would account for feeling achy coughing congested. The lungs appear clear so no signs of pneumonia. We can treat this with some medicine for the cough and also adding in Tylenol or tramadol if needed for pain. You may get some benefit on the flu symptoms with the Tamiflu antiviral medicine. Continue your other usual medications. Recheck if not improving over the next several days or so. Discharge Date/Time: 09/08/18 15:40
[2018-09-08] MEDS ORDERED: BENZONATATE 100 MG CAPSULE PO STA (14:37)
[2018-09-08] MEDS ORDERED: DEXAMETHASONE 10 MG/ML VIAL PO STA (14:37)
[2018-09-08] MEDS ORDERED: traMADol 50 MG TABLET PO STA (14:39)
[2018-09-08] MEDS ORDERED: CHERRY SYRUP 10 ML UDC PO ONE (14:59)
--- NOTE | 2018-09-08 15:14 | XRAY Report ---
Reason: cough and anterior chest pain Procedure Date: 09/08/2018 Accession Number: [id number] / [id number] Procedure: XR - Chest 2 View X-Ray CPT Code: 86399 FULL RESULT: EXAM: CHEST RADIOGRAPHY EXAM DATE: 09/08/2018 03:00 PM. CLINICAL HISTORY: Cough and anterior chest pain. COMPARISON: CHEST 2 VIEW 02/21/2018 7:14 AM. TECHNIQUE: 2 views. FINDINGS: Lungs/Pleura: There is linear atelectasis in the right middle lobe without significant change. Lung volumes are normal. No pleural effusion or pneumothorax. Mediastinum: Heart size is normal. There is moderate calcification of the aortic arch. Other: None. IMPRESSION: 1. No significant change. Right middle lobe linear atelectasis. RADIA
== END 2018-09-08 15:40 | disposition home or self-care (01) ==
LOC: ED 13:51
DX: J10.1 Influenza due to other identified influenza virus with other respiratory manifestations (principal); J20.9 Acute bronchitis, unspecified; Z96.659 Presence of unspecified artificial knee joint
CPT/HCPCS: 71046; 87275; 87276; 99283; A9270

== ENCOUNTER 2018-09-14 16:10 | Observation (INO) | payer OTHER ==
--- NOTE | 2018-09-14 16:38 | ED Physician Documentation ---
History of Present Illness - Stated complaint Stated Complaint: SORE THROAT/DIZZY - Chief complaint Chief Complaint: Resp - History obtained from History obtained from: Patient, Family - History of Present Illness Timing: Other (He was diagnosed with flu 6 days ago, finished Tamiflu yesterday but still feels very fatigued, has a productive cough and shortness of breath. Denies chest pain or pedal edema. No more fevers.) Review of Systems Constitutional: reports: Fatigue. denies: Fever, Chills Ears: denies: Ear pain Nose: denies: Rhinorrhea / runny nose Throat: denies: Sore throat Cardiac: denies: Chest pain / pressure, Palpitations Respiratory: reports: Dyspnea, Cough. denies: Hemoptysis, Wheezing GI: reports: Constipation (resolved with prune juice). denies: Abdominal Pain, Nausea, Vomiting, Diarrhea PD PAST MEDICAL HISTORY - Past Medical History Past Medical History: Yes Cardiovascular: Murmur Respiratory: Sleep apnea Endocrine/Autoimmune: None GI: None : None HEENT: None Psych: None Musculoskeletal: None Derm: None - Past Surgical History Past Surgical History: Yes General: Colonoscopy, Other Ortho: Knee replacement - Present Medications Home Medications: Ambulatory Orders Medication Instructions Recorded Confirmed Blood-Glucose Meter [Glucometer] 1 each TID #1 each 02/19/18 09/14/18 Docusate Sodium 100 mg PO BID PRN #10 capsule 02/19/18 09/14/18 Lancets/Blood Glucose Strips [Fora 1 each TID #15 combo..pkg 02/19/18 09/14/18 [id number] Strp-Lnct] Pen Needle, Diabetic [Pen [place]] 1 each TID #15 dis.needle 02/19/18 09/14/18 Aspirin Chewable [St Jhony 81 mg PO DAILY 02/20/18 09/14/18 Aspirin] Calcium Carbonate/Vitamin D3 2 tab PO DAILY 02/20/18 09/14/18 [Calcium 250-Vit D3 125 Tablet] Chlorthalidone 25 mg PO DAILY 02/20/18 09/14/18 Cholecalciferol (Vitamin D3) 4,000 unit PO DAILY 02/20/18 09/14/18 [Vitamin D3] Fosinopril Sodium 20 mg PO DAILY 02/20/18 09/14/18 Ibrutinib [Imbruvica] 420 mg PO DAILY 02/20/18 09/14/18 Metformin HCl 1,000 mg PO BID 02/20/18 09/14/18 Omeprazole 20 mg PO BIDAC 02/20/18 09/14/18 Simvastatin [Zocor] 40 mg PO QPM 02/20/18 09/14/18 Tramadol HCl 50 mg PO Q6H PRN #15 tablet 09/08/18 09/14/18 - Allergies Allergies/Adverse Reactions: Allergies Allergy/AdvReac Type Severity Reaction Status Date / Time No Known Drug Allergies Allergy Verified 09/14/18 16:19 - Social History Does the pt smoke?: No Smoking Status: Never smoker Does the pt drink ETOH?: No Does the pt have substance abuse?: No - Family History Family history: reports: Non contributory - Immunizations Immunizations are current?: Yes PD ED PE NORMAL - Vitals Vital signs reviewed: Yes - General General: Alert and oriented X 3, No acute distress - HEENT HEENT: PERRL, EOMI - Neck Neck: Supple, no meningeal sign, No bony TTP - Cardiac Cardiac: RRR, Other (2 out of 6 systolic decrescendo mmr) - Respiratory Respiratory: No respiratory distress, Clear bilaterally - Abdomen Abdomen: Soft, Non tender - Rectal Rectal: Other (Brown guaiac pos stool) - Back Back: No CVA TTP, No spinal TTP - Derm Derm: Normal color, Warm and dry - Extremities Extremities: No edema, No calf tenderness / cord - Neuro Neuro: Alert and oriented X 3, Normal speech Results - Vitals Vitals: Vital Signs - 24 hr 09/14/18 09/14/18 16:15 16:32 Temperature 36.5 C Heart Rate 79 66 Respiratory 20 18 Rate Blood Pressure 135/50 H 136/63 H O2 Saturation 99 100 Oxygen O2 Source Room air - EKG (time done) 1650 Rate: Rate (enter#) (62) Rhythm: NSR [place]: Normal Intervals: Normal [place] QRS: Normal Ischemia: Non specific changes (IVCD/LAD, Flat T Ant/lat) Computer interpretation: Agree with computer - Labs Labs: Laboratory Tests 09/14/18 09/14/18 09/14/18 16:40 16:40 16:40 WBC 13.2 H RBC 3.60 L Hgb 7.0 L* Hct 24.2 L MCV 67.3 L MCH 19.5 L MCHC 29.0 L RDW 18.9 H Plt Count 403 MPV 7.4 Neut # (Auto) Not Reportable Lymph # (Auto) Not Reportable Barren # (Auto) Not Reportable Eos # (Auto) Not Reportable Baso # (Auto) Not Reportable Absolute Nucleated RBC Not Reportable Total Counted 100 Band Neuts % (Manual) 5 Abnorm Lymph % (Manual) 0 Nucleated RBC % Not Reportable Neutrophils # (Manual) 6.9 H Lymphocytes # (Manual) 5.8 H Monocytes # (Manual) 0.5 Eosinophils # (Manual) 0.0 Basophils # (Manual) 0.0 Differential Comment MANUAL DIFFERENTIAL Platelet Estimate NORMAL (130-450,000) Platelet Morphology NORMAL APPEARANCE RBC Morph Micro Appear 2+ POIKILOCYTOSIS Sodium 128 L Potassium 3.5 Chloride 91 L Carbon Dioxide 26 Anion Gap 11.0 BUN 17 Creatinine 0.8 Estimated GFR (MDRD) 92 Glucose 103 H Calcium 8.9 Total Bilirubin 0.6 AST 19 ALT 12 Alkaline Phosphatase 46 Troponin I < 0.04 Total Protein 6.6 L Albumin 4.1 Globulin 2.5 Albumin/Globulin Ratio 1.6 Lipase 32 - Rads (name of study) 2v chest Radiology: EMP read contemporaneously (NAD) PD MEDICAL DECISION MAKING - ED course ED course: This is an 87-year-old gentleman who just had the flu, presents with persistent fatigue. He has chronic CLL. He is not anticoagulated, does not take NSAIDs, is not a drinker. He is found to be guaiac positive with hemoglobin of 7. His chest x-ray is clear. Blood is readied but there will be a significant delay because of some antibody issues. That is okay, he is hemodynamically stable. Spoke with Dr. Grace who will consult of medicine requests at 5:52 PM and call to the hospitalist, Dr. Dudley for admission at the same time. Departure - Departure Disposition: ED Place in Observation Clinical Impression: CLL (chronic lymphocytic leukemia), Heme + stool Profound anemia Qualifiers: Anemia type: other cause Other causes of anemia: other cause, not classified Qualified Code(s): D64.89 - Other specified anemias Condition: Stable
[2018-09-14 16:53] LABS: BASOPHILS % (AUTO) 0.4 %; EOSINOPHILS % (AUTO) 0.6 %; LYMPHOCYTES % (AUTO) 47.3 %; MEAN CORPUSCULAR HEMOGLOBIN 19.5 pg (27.0-31.0); MEAN CORPUSCULAR VOLUME 67.3 fL (80.0-94.0); MEAN PLATELET VOLUME 7.4 fL (7.4-11.4); MONOCYTES % (AUTO) 7.3 %; NEUTROPHILS % (AUTO) 44.4 %; PLT - PLATELET COUNT 403 10^3/uL (130-450); RED CELL DISTRIBUTION WIDTH 18.9 % (12.0-15.0); WHITE BLOOD COUNT 13.2 x10^3/uL (4.8-10.8)
[2018-09-14 16:55] LABS: ABNORMAL LYMPHS % (MANUAL) 0 %
[2018-09-14 17:05] LABS: ALBUMIN 4.1 g/dL (3.2-5.5); ALBUMIN/GLOBULIN RATIO 1.6 (1.0-2.2); BILIRUBIN,TOTAL 0.6 mg/dL (0.2-1.0); CALCIUM 8.9 mg/dL (8.5-10.3); CREATININE 0.8 mg/dL (0.6-1.2); TOTAL PROTEIN 6.6 g/dL (6.7-8.2)
[2018-09-14 17:21] LABS: BAND NEUTROPHILS % (MANUAL) 5 %; LYMPHOCYTES # (MANUAL) 5.8 10^3/uL (1.5-3.5); LYMPHOCYTES % (MANUAL) 44 %; MONOCYTES # (MANUAL) 0.5 10^3/uL (0.0-1.0); NEUTROPHILS # (MANUAL) 6.9 10^3/uL (1.5-6.6); NEUTROPHILS % (MANUAL) 47 %
[2018-09-14 17:22] LABS: DIFFERENTIAL COMMENT MANUAL DIFFERENTIAL; PLATELET ESTIMATE, MANUAL NORMAL (130-450,000) (NORMAL); PLATELET MORPHOLOGY NORMAL APPEARANCE (NORMAL)
--- NOTE | 2018-09-14 17:40 | XRAY Report ---
Reason: dyspnea cough Procedure Date: 09/14/2018 Accession Number: [id number] / [id number] Procedure: XR - Chest 2 View X-Ray CPT Code: 11710 FULL RESULT: EXAM: CHEST RADIOGRAPHY EXAM DATE: 09/14/2018 05:17 PM. CLINICAL HISTORY: Cough and dyspnea. COMPARISON: CHEST 2 VIEW 09/08/2018 2:46 PM. TECHNIQUE: 2 views. FINDINGS: Lungs/Pleura: No focal consolidation or evidence of edema. No pleural effusion or pneumothorax. Mediastinum: Heart size is normal. The aorta is mildly tortuous and contains atherosclerotic calcifications, as before. Other: Degenerative changes within the spine. Mild right convex curvature of the midthoracic spine. IMPRESSION: No acute cardiopulmonary abnormality. RADIA
[2018-09-14] MEDS ORDERED: PANTOPRAZOLE 40 MG VIAL IVP STA (17:49)
[2018-09-14] MEDS ORDERED: SODIUM CHLORIDE FLUSH 0.9% 10 ML SYRINGE IVP PRN (18:07)
[2018-09-14] MEDS ORDERED: ACETAMINOPHEN 325 MG TABLET PO PRN (18:07)
[2018-09-14] MEDS ORDERED: TEMAZEPAM 7.5 MG CAPSULE PO PRN (18:07)
[2018-09-14] MEDS ORDERED: methylPREDNISolone SUCCINATE 125 MG/2 ML VIAL IVP STA (20:02)
--- NOTE | 2018-09-14 21:04 | HISTORY & PHYSICAL EXAMINATION ---
Chief Complaint - Chief Complaint Chief Complaint: tiredness and dyspnea History of Present Illness - Admitted From Admitted From:: [facility] [place] ED - History Obtained From Records Reviewed: yes History obtained from: patient - History of Present Illness HPI Comment/Other: Patient is an 87 y/o male with Hx of CLL on ibruvica, who presented to the ED with complain of dyspnea, tiredness and dizziness. He had been initially seen in the ED 6 days ago, was diagnosed with influenza and placed on tamiflu which he completed. However he continued to feel tired yesterday and today so he came back for re-evaluation. Work up in the ED showed a hemoglobin of 7. His baseline hemoglobin is usually 11. He was also found to have heme positive stool. At bedside he is resting comfortably. He appears quite pale and has a persistent cough. He denies chest pain, abd pain, nausea, vomiting, fever or chills. History - Past Medical History Cardiovascular: reports: Hypertension, High cholesterol, Murmur Respiratory: reports: Sleep apnea Endocrine/Autoimmune: reports: Type 2 diabetes GI: reports: GERD : reports: None HEENT: reports: None Psych: reports: None Musculoskeletal: reports: None Derm: reports: None MRSA Hx?: No Other Past Medical History: CLL - Past Surgical History General: reports: Colonoscopy, Other Ortho: reports: Knee replacement - Family & Social History Living arrangement: At home Living Situation: With family (grandson) Social History Notes: Has 2 sons in the area who check on him quite regularly - Substance History Use: Uses substance without health or social issues: NONE - POLST Patient has POLST: No POLST Status: Full Code Meds/Allgy - Home Medications Home Medications: Ambulatory Orders Medication Instructions Recorded Confirmed Blood-Glucose Meter [Glucometer] 1 each MC TID #1 each 02/19/18 09/14/18 Pen Needle, Diabetic [Pen [place]] 1 each MC TID #15 dis.needle 02/19/18 09/14/18 RX: Docusate Sodium 100 mg PO BID PRN #10 capsule 02/19/18 09/14/18 RX: Lancets/Blood Glucose Strips 1 each MC TID #15 combo..pkg 02/19/18 09/14/18 [Fora [id number] Strp-Lnct] RX: Aspirin Chewable [St Jhony 81 mg PO DAILY 02/20/18 09/14/18 Aspirin] RX: Calcium Carbonate/Vitamin D3 2 tab PO DAILY 02/20/18 09/14/18 [Calcium 250-Vit D3 125 Tablet] RX: Chlorthalidone 25 mg PO DAILY 02/20/18 09/14/18 RX: Cholecalciferol (Vitamin D3) 4,000 unit PO DAILY 02/20/18 09/14/18 [Vitamin D3] RX: Fosinopril Sodium 20 mg PO DAILY 02/20/18 09/14/18 RX: Ibrutinib [Imbruvica] 420 mg PO DAILY 02/20/18 09/14/18 RX: Metformin HCl 1,000 mg PO BID 02/20/18 09/14/18 RX: Omeprazole 20 mg PO BIDAC 02/20/18 09/14/18 RX: Simvastatin [Zocor] 40 mg PO QPM 02/20/18 09/14/18 RX: Tramadol HCl 50 mg PO Q6H PRN #15 tablet 09/08/18 09/14/18 - Allergies Allergies/Adverse Reactions: Allergies Allergy/AdvReac Type Severity Reaction Status Date / Time No Known Drug Allergies Allergy Verified 09/14/18 16:19 Review of Systems - Constitutional Constitutional: reports: Fatigue. denies: Fever, Chills, Diaphoresis, Night sweats - Eyes Eyes: denies: Blurred vision, Vision loss, Dipolpia - Ears, Nose & Throat Ears, Nose & Throat: reports: Hoarseness. denies: Vertigo, Nasal pain, Nasal discharge - Cardiovascular Cariovascular: reports: Lightheadedness. denies: Palpitations, Chest pain, Edema - Respiratory Respiratory: reports: Cough, SOB at rest. denies: Wheezing, Hemoptysis - Gastrointestinal Gastrointestinal: reports: Constipation. denies: Abdominal pain, Abdominal distention, Black stools, Bloody stools, Nausea, Vomiting, Coffee grounds em esis, Reflux/heartburn - Genitourinary Genitourinary: denies: Dysuria, Frequency, Urgency, Hematuria - Integumentary Integumentary: denies: Rash, Pruritis, Lesions, Dryness - Neurological Neurological: reports: General weakness, Dizziness. denies: Headache, Slurred speech - Psychiatric Psychiatric: denies: Depression, Anxiety - Endocrine Endocrine: denies: Polyuria, Polydypsia - Hematologic/Lymphatic Hematologic/Lymphatic: reports: Anemia. denies: Bruising, Petechiae Exam - Vital Signs Vital Signs: Vital Signs x48h Temp Pulse Pulse Resp BP BP Pulse Ox 09/14/18 19:32 36.9 C 68 16 144/55 H 100 09/14/18 19:19 68 18 132/68 H 100 09/14/18 18:06 66 16 132/59 H 97 09/14/18 16:32 66 18 136/63 H 100 09/14/18 16:15 36.5 C 79 20 135/50 H 99 - Physical Exam General Appearance: positive: No acute distress, Other (apears pale) Eyes Bilateral: positive: Normal inspection, PERRL, EOMI ENT: positive: ENT inspection nml Neck: positive: Nml inspection, No JVD, Trachea midline Respiratory: positive: Chest non-tender, No respiratory distress, Breath sounds nml. negative: Wheezes, Rales, Rhonchi Cardiovascular: positive: Regular rate & rhythm Abdomen: positive: Non-tender, No organomegaly, Nml bowel sounds, No distention Rectal: positive: Stool - heme POS Skin: positive: No rash, Warm, Dry, Pallor. negative: Color nml Extremities: positive: Non-tender, Nml appearance, No pedal edema Neurologic/Psychiatric: positive: Oriented x3 Conclusion/Plan - Problem List (1) Profound anemia Conclusion/Plan: Microcytic Likely 2/2 GI bleed since stool is heme positive ?Iron deficiency contributing Will transfuse 2 units PRBC and monitor H&H If hemoglobin drops, then possible EGD and/or colonoscopy Patient on protonix IV Qualifiers: Anemia type: other cause Other causes of anemia: other cause, not classified Qualified Code(s): D64.89 - Other specified anemias (2) DM2 (diabetes mellitus, type 2) Conclusion/Plan: On metformin at home Will hold in the hospital Accu check AC/HS Will ordered a SSI as needed (3) HTN (hypertension) Conclusion/Plan: On fosinopril and chlorthalidone at home. Resume when verified (4) Hyperlipidemia Conclusion/Plan: On simvastatin (5) CLL (chronic lymphocytic leukemia) Conclusion/Plan: On imbruvica - Lab Results Fish Bones: 09/14/18 16:40 09/14/18 16:40 Core Measures - Anticipated LOS I expect patient to be DC'd or transferred within 96 hours.: Yes - DVT/VTE - Prophylaxis VTE/DVT Device ordered at admit?: Yes VTE/DVT Prophylaxis med ordered at admit?: No Not Ordered - Medical Reason: Contraindicated (GI bleed)
[2018-09-14] MEDS: FAMOTIDINE 20 MG TABLET PO SCH (23:10)
[2018-09-15] MEDS: SODIUM CHLORIDE FLUSH 0.9% 10 ML SYRINGE IVP SCH ×3 (00:50→17:17)
[2018-09-15] MEDS: guaiFENesin/DEXTROMETHORPHAN 10 ML UDC PO PRN ×3 (06:06→18:06)
[2018-09-15] MEDS: FAMOTIDINE 20 MG TABLET PO SCH (08:09)
[2018-09-15] MEDS ORDERED: POLYETHYLENE GLYCOL 3350 17 GM PACKET PO SCH (09:00)
[2018-09-15 11:59] LABS: BASOPHILS % (AUTO) 0.2 %; EOSINOPHILS % (AUTO) 0.2 %; HGB - HEMOGLOBIN 8.3 g/dL (14.0-18.0); LYMPHOCYTES # (AUTO) 4.6 10^3/uL (1.5-3.5); LYMPHOCYTES % (AUTO) 37.6 %; MEAN CORPUSCULAR HEMOGLOBIN 22.4 pg (27.0-31.0); MEAN CORPUSCULAR HGB CONC 31.9 g/dL (32.0-36.0); MEAN CORPUSCULAR VOLUME 70.2 fL (80.0-94.0); MEAN PLATELET VOLUME 6.9 fL (7.4-11.4); NEUTROPHILS # (AUTO) 6.6 10^3/uL (1.5-6.6); PLT - PLATELET COUNT 317 10^3/uL (130-450); RED BLOOD COUNT 3.71 10^6/uL (4.70-6.10); RED CELL DISTRIBUTION WIDTH 22.8 % (12.0-15.0); WHITE BLOOD COUNT 12.3 x10^3/uL (4.8-10.8)
[2018-09-15 12:24] LABS: PLATELET ESTIMATE, MANUAL NORMAL (130-450,000) (NORMAL); PLATELET MORPHOLOGY NORMAL APPEARANCE (NORMAL)
[2018-09-15 18:28] LABS: HGB - HEMOGLOBIN 8.6 g/dL (14.0-18.0)
--- NOTE | 2018-09-15 18:40 | Discharge Plan ---
Discharge Plan Disposition: 01 Home, Self Care Condition: Good Diet: Cardiac Activity Restrictions: No Restrictions Additional Instructions or Follow Up instructions: You were admitted for a low blood count. You were given 2 units of blood. Your blood count responded, 8.6 upon discharge. Please follow-up with your primary care provider within 1 week. Also, please inform your oncologist of your hospitalization and follow-up with them as dire cted. At this time, avoid any aspirin/NSAID products until follow-up with your PCP No Smoking: If you smoke, Please STOP! Call for help.
--- NOTE | 2018-09-15 18:40 | DISCHARGE SUMMARY ---
Discharge Summary Admit Date: 09/14/18 Discharge Date: 09/07/18 Discharging Provider: Eloisa SIGAAL Primary Care Provider: Provider with the [place] Code Status: Attempt Resuscitation Condition at Discharge: Good Discharge Disposition: 01 Home, Self Care - DIAGNOSES Admission Diagnoses: (1) Profound anemia (2) DM2 (diabetes mellitus, type 2) (3) HTN (hypertension) (4) Hyperlipidemia (5) CLL (chronic lymphocytic leukemia) Discharge Diagnoses with Status of Each Condition: (1) Profound anemia, improved (2) DM2 (diabetes mellitus, type 2), stable (3) HTN (hypertension), stable (4) Hyperlipidemia, stable (5) CLL (chronic lymphocytic leukemia), stable - HPI History of Present Illness: As per Dr. Miller's H&P dated 09/14/2018: 'Patient is an 87 y/o male with Hx of CLL on ibruvica, who presented to the ED with complain of dyspnea, tiredness and dizziness. He had been initially seen in the ED 6 days ago, was diagnosed with influenza and placed on tamiflu which he completed. However he continued to feel tired yesterday and today so he came back for re-evaluation. Work up in the ED showed a hemoglobin of 7. His baseline hemoglobin is usually 11. He was also found to have heme positive stool. At bedside he is resting comfortably. He appears quite pale and has a persistent cough. He denies chest pain, abd pain, nausea, vomiting, fever or chills.' - HOSPITAL COURSE Hospital Course: (1) Profound anemia Microcytic Likely 2/2 GI bleed since stool is heme positive ?Iron deficiency contributing He was transfused 2 units of blood with improvement in his H&H He needs to follow-up with his PCP upon discharge (2) DM2 (diabetes mellitus, type 2) On metformin at home This was held during his hospitalization and will resume upon discharge (3) HTN (hypertension) He will resume home medications at discharge (4) Hyperlipidemia His simvastatin was continued. (5) CLL (chronic lymphocytic leukemia) On imbruvica He reports his last blood transfusion was roughly 6-8 months ago. He was asked to follow-up with his oncologist upon discharge - ALLERGIES Allergies/Adverse Reactions: Allergies Allergy/AdvReac Type Severity Reaction Status Date / Time No Known Drug Allergies Allergy Verified 09/14/18 16:19 - MEDICATIONS Home Medications: Ambulatory Orders Medication Instructions Recorded Confirmed Blood-Glucose Meter [Glucometer] 1 each TID #1 each 02/19/18 09/14/18 Docusate Sodium 100 mg PO BID PRN #10 capsule 02/19/18 09/14/18 Lancets/Blood Glucose Strips [Fora 1 each TID #15 combo..pkg 02/19/18 09/14/18 [id number] Strp-Lnct] Pen Needle, Diabetic [Pen [place]] 1 each TID #15 dis.needle 02/19/18 09/14/18 Calcium Carbonate/Vitamin D3 2 tab PO DAILY 02/20/18 09/14/18 [Calcium 250-Vit D3 125 Tablet] Chlorthalidone 25 mg PO DAILY 02/20/18 09/14/18 Cholecalciferol (Vitamin D3) 4,000 unit PO DAILY 02/20/18 09/14/18 [Vitamin D3] Fosinopril Sodium 20 mg PO DAILY 02/20/18 09/14/18 Ibrutinib [Imbruvica] 420 mg PO DAILY 02/20/18 09/14/18 Metformin HCl 1,000 mg PO BID 02/20/18 09/14/18 Omeprazole 20 mg PO BIDAC 02/20/18 09/14/18 Simvastatin [Zocor] 40 mg PO QPM 02/20/18 09/14/18 Tramadol HCl 50 mg PO Q6H PRN #15 tablet 09/08/18 09/14/18 - PHYSICAL EXAM AT DISCHARGE General Appearance: positive: No acute distress, Alert Eyes Bilateral: positive: Normal inspection, PERRL, EOMI ENT: positive: ENT inspection nml, Pharynx nml, No signs of dehydration Neck: positive: Nml inspection, Trachea midline Respiratory: positive: Chest non-tender, No respiratory distress, Breath sounds nml. negative: Wheezes, Rales, Rhonchi Cardiovascular: positive: Regular rate & rhythm, No murmur, No gallop Peripheral Pulses: positive: 2+ Skin: positive: Color nml, Warm, Dry Extremities: positive: Non-tender, Full ROM, Nml appearance Neurologic/Psychiatric: positive: Oriented x3, CN's nml (2-12), Motor nml, Sensation nml, Mood/affect nml - LABS Result Diagrams: 09/15/18 18:05 09/14/18 16:40 - DIAGNOSTIC IMAGING Diagnostic Imaging Results: Final report reviewed - FOLLOW UP Follow Up: Follow-up with PCP within 1 week for labwork Follow-up with oncologist - TIME SPENT Time Spent in Discharge (Minutes): 45
[2018-09-15 18:55] VITALS: BP 117/68
== END 2018-09-15 19:04 | disposition home or self-care (01) ==
LOC: ED 16:10 → OBS 18:07
PROVIDERS: ADMIT Internal Medicine; ATTEND Nurse Practitioner
DX: D63.8 Anemia in other chronic diseases classified elsewhere (principal); E11.9 Type 2 diabetes mellitus without complications; I10 Essential (primary) hypertension; E78.5 Hyperlipidemia, unspecified; R19.5 Other fecal abnormalities; C91.10 Chronic lymphocytic leukemia of B-cell type not having achieved remission; G47.30 Sleep apnea, unspecified; K21.9 Gastro-esophageal reflux disease without esophagitis; R01.1 Cardiac murmur, unspecified; Z79.82 Long term (current) use of aspirin; Z79.84 Long term (current) use of oral hypoglycemic drugs; Z79.899 Other long term (current) drug therapy; Z96.659 Presence of unspecified artificial knee joint
CPT/HCPCS: 36415; 36430; 71046; 80053; 83690; 84484; 85014; 85018; 85025; 86850; 86870; 86880; 86900; 86901; 86920; 93005; 96374; 99283; 99284